=== PATIENT | male | born 1935 | race Caucasian/White ===

== ENCOUNTER → 2017-11-01 16:00 | Outpatient (CLI) | payer MEDICARE, SELFPAY ==
[2017-11-01 17:29] LABS: Absolute Neutrophil Count 5.7 X10^3/uL (2.0-7.7); Basophil# 0.04 X10^3/uL; Basophil% 0.5 % (0-1); Eosinophil# 0.15 X10^3/uL; Eosinophils% 1.9 % (0-5); Hematocrit 38.3 % (40-54); Hemoglobin 12.7 g/dl (13.0-16.5); Lymphocyte % 20.2 % (19-41); Mean Corp Hgb Conc 33.2 g/gl (32-36); Mean Corpuscular Hgb 31.4 pg (27.0-32.0); Mean Corpuscular Volume 94.6 fL (80-94); Mean Platelet Vol. 9.4 fl (6.2-12.0); Monocyte# 0.46 X10^3/uL; Monocyte% 5.8 % (0-10); Neutrophil # 5.67 X10^3/uL (2.7-7.7); Neutrophil % 71.5 % (47-70); Platelet Count 198 K/mm3 (150-450); RBC Distribution Width CV 15.3 % (11.6-14.6); RBC Distribution Width SD 51.9 fl (35.1-43.9); Red Blood Count 4.05 M/mm3 (4.6-6.2); White Blood Count 7.9 K/mm3 (4.4-11.0)
[2017-11-01 17:31] LABS: POSITIVE COUNT NO; POSITIVE DIFFERENTIAL NO; POSITIVE MORPHOLOGY NO
[2017-11-01 18:03] LABS: ALB/GLOB Ratio 1.1 RATIO (0.9-2.4); AST(SGOT) 17 U/L (15-37); Alanine Aminotransfer ALT/SGPT 26 U/L (16-61); Albumin, Serum 3.6 g/dL (3.2-5.0); Alkaline Phosphatase 69 U/L (45-117); Anion Gap 8 (5-15); BUN 30 mg/dL (7-18); BUN/Creat Ratio 28.3 RATIO (10-20); Calcium,Total 9.5 mg/dL (8.5-10.1); Chloride 101 mmol/L (98-107); Creatinine, Serum 1.06 mg/dL (0.70-1.30); EST Glomerular Filtration Rate 71 mL/min (>60); Est Glom Filt Rate - Afr Amer 86 mL/min (>60); Globulin 3.4 g/dL (2.2-4.2); Glucose 172 mg/dL (74-106); Potassium 3.4 mmol/L (3.5-5.1); Sodium Level 139 mmol/L (136-145); Thyroid Stim Hormone (TSH) 1.23 uIU/mL (0.358-3.74)
[2017-11-02 09:39] LABS: Vitamin D,25 Hydroxy 29.1 ng/mL (29.95-100.01)
[2017-11-02 18:49] LABS: Hemoglobin A1c 5.4 % (4.2-6.3)
== END ==
PROVIDERS: Visit Provider Family Medicine Geriatric Medicine
DX: I10 Essential (primary) hypertension (principal); E55.9 Vitamin D deficiency, unspecified; M10.9 Gout, unspecified; R73.9 Hyperglycemia, unspecified
CPT/HCPCS: 36415; 80053; 82306; 83036; 84443; 84550; 85025

== ENCOUNTER → 2017-11-01 16:06 | Outpatient (CLI) | payer MEDICARE, OTHER, SELFPAY ==
--- NOTE | 2017-11-01 16:15 | EKG12_ITS ---
Test Reason : SYNCOPE Blood Pressure : / mmHG Vent. Rate : 069 BPM Atrial Rate : 069 BPM P-R Int : 176 ms QRS Dur : 090 ms QT Int : 392 ms P-R-T Axes : 084 -74 086 degrees QTc Int : 420 ms Normal sinus rhythm Left axis deviation Nonspecific ST and T wave abnormality Abnormal ECG Confirmed by ROSIE HINOJOSA, SUSAN ([id number]), image editor WILLOW ANGELES ([id number]) on 11/02/2017 2:32:14 PM Referred By: Neto Rashid Confirmed By:SUSAN VELEZ MD
== END ==
PROVIDERS: Family Provider Family Medicine Geriatric Medicine; PCP Family Medicine Geriatric Medicine; Visit Provider Family Medicine Geriatric Medicine
DX: R55 Syncope and collapse (principal)
CPT/HCPCS: 93005

== ENCOUNTER → 2017-11-10 08:53 | Outpatient (CLI) | payer MEDICARE, OTHER, SELFPAY ==
[2017-11-10 13:23] LABS: Anion Gap 6 (5-15); BUN 16 mg/dL (7-18); BUN/Creat Ratio 18.2 RATIO (10-20); Calcium,Total 8.8 mg/dL (8.5-10.1); Chloride 105 mmol/L (98-107); Creatinine, Serum 0.88 mg/dL (0.70-1.30); EST Glomerular Filtration Rate 89 mL/min (>60); Est Glom Filt Rate - Afr Amer 107 mL/min (>60); Glucose 99 mg/dL (74-106); Potassium 4.1 mmol/L (3.5-5.1); Sodium Level 141 mmol/L (136-145)
== END ==
PROVIDERS: Family Provider Family Medicine Geriatric Medicine; PCP Family Medicine Geriatric Medicine; Visit Provider Family Medicine Geriatric Medicine
DX: E87.6 Hypokalemia (principal)
CPT/HCPCS: 36415; 80048

== ENCOUNTER → 2018-06-16 12:42 | Outpatient (CLI) | payer MEDICARE, OTHER, SELFPAY ==
--- NOTE | 2018-06-16 12:44 | ECHOD_ITS ---
Reason For Study: HTN Procedure This was a 2D Doppler, Color Flow transthoracic echocardiogram. Exam performed in department. Left Ventricle Normal LV size. Left ventricular systolic function is normal. The estimated ejection fraction is 55 %. Stage 1 diastolic dysfunction. No regional wall motion abnormalities noted. Right Ventricle Normal RV size. Normal systolic function. Atria Normal left atrium. Normal right atrium. Mitral Valve Normal mitral valve. Mild (1+) eccentric mitral valve insufficiency. Tricuspid Valve Normal tricuspid valve. Mild (1+) tricuspid valve insufficiency. Pulmonary artery systolic pressure is 34 mmHg. Aortic Valve Trisinus/trileaflet aortic valve. Mild focal aortic valve calcification. Pulmonic Valve The pulmonic valve is not well visualized. Great Vessels Normal aortic root. The pulmonary artery is normal size. Normal inferior vena cava. Pericardium/Pleural No pericardial effusion. MMode/2D Measurements & Calculations LVIDd: 5.0 cm IVSd: 1.0 cm LVOT diam: 2.0 cm LVIDs: 2.9 cm LVPWd: 1.0 cm LVOT area: 3.1 cm2 FS: 40.8 % Ao root diam: 4.0 cm LAV(MOD-bp): 59.6 ml LVAd ap4: 31.6 cm2 LA dimension: 3.6 cm LAV(MOD-bp) Indexed: 28.9 ml/m2 EDV(MOD-sp4): 97.3 ml LAV(MOD-sp2): 59.4 ml EDV(sp4-el): 97.4 ml LAV(MOD-sp4): 49.2 ml LVAs ap4: 16.5 cm2 ESV(MOD-sp4): 35.5 ml ESV(sp4-el): 35.2 ml EF(MOD-sp4): 63.5 % EF(sp4-el): 63.8 % SV(MOD-sp4): 61.8 ml SV(sp4-el): 62.2 ml LA A4 area: 16.9 cm2 RA A4 area: 15.7 cm2 Time Measurements MV dec time: 0.25 sec Doppler Measurements & Calculations MV E max kevin: 65.2 cm/sec Lat Peak E' Kevin: 4.4 cm/sec Med Peak E' Kevin: 5.2 cm/sec MV A max kevin: 112.7 cm/sec E/E' lat: 14.9 E/E' med: 12.5 MV E/A: 0.58 MV V2 max: 123.3 cm/sec MV P1/2t max kevin: 80.9 cm/sec Ao V2 max: 137.7 cm/sec MV max P.1 mmHg MV P1/2t: 87.4 msec Ao max P.6 mmHg MV V2 mean: 55.3 cm/sec MV dec slope: 271.0 cm/sec2 Ao V2 mean: 90.4 cm/sec MV mean P.5 mmHg MVA(P1/2t): 2.5 cm2 Ao mean P.6 mmHg MV V2 VTI: 38.0 cm Ao V2 VTI: 30.4 cm MVA(VTI): 2.1 cm2 HELLEN(I,D): 2.7 cm2 HELLEN(V,D): 2.8 cm2 LV V1 max: 122.9 cm/sec SV(LVOT): 81.6 ml PA V2 max: 107.9 cm/sec LV V1 max P.0 mmHg LV V1 mean P.7 mmHg LV V1 mean: 75.3 cm/sec LV V1 VTI: 26.4 cm TR max kevin: 267.7 cm/sec TR max P.7 mmHg Interpretation Summary Normal LV size. Left ventricular systolic function is normal. The estimated ejection fraction is 55 %. Stage 1 diastolic dysfunction. Mild (1+) eccentric mitral valve insufficiency. Mild (1+) tricuspid valve insufficiency. Ordering Physician: Jan Savage Referring Physician: Neto Rashid Chi Performed By: Ronnie Camarillo RCS
== END ==
PROVIDERS: Family Provider Family Medicine Geriatric Medicine; PCP Family Medicine Geriatric Medicine; Referring Provider Internal Medicine Cardiovascular Disease; Visit Provider Internal Medicine Cardiovascular Disease
DX: R94.31 Abnormal electrocardiogram [ECG] [EKG] (principal)
CPT/HCPCS: 93306

== ENCOUNTER → 2018-08-02 13:58 | Outpatient (CLI) | payer MEDICARE, OTHER, SELFPAY ==
[2018-06-22 13:49] VITALS: BMI 25.6
[2018-08-02 17:12] LABS: Absolute Lymphocyte Count 1.85 X10^3/ul (0.83-4.51); Absolute Neutrophil Count 4.1 X10^3/uL (2.0-7.7); Basophil# 0.07 X10^3/uL; Hematocrit 41.8 % (40-54); Hemoglobin 13.5 g/dl (13.0-16.5); Lymphocyte # 1.85 X10^3/ul (4.0); Lymphocyte % 27.7 % (19-41); Mean Corp Hgb Conc 32.3 g/gl (32-36); Mean Corpuscular Hgb 30.9 pg (27.0-32.0); Mean Corpuscular Volume 95.7 fL (80-94); Mean Platelet Vol. 9.7 fl (6.2-12.0); Monocyte# 0.45 X10^3/uL; Monocyte% 6.7 % (0-10); Neutrophil # 4.09 X10^3/uL (2.7-7.7); Neutrophil % 61.5 % (47-70); Platelet Count 212 K/mm3 (150-450); RBC Distribution Width CV 14.9 % (11.6-14.6); RBC Distribution Width SD 50.4 fl (35.1-43.9); Red Blood Count 4.37 M/mm3 (4.6-6.2); White Blood Count 6.7 K/mm3 (4.4-11.0)
[2018-08-02 17:34] LABS: POSITIVE COUNT NO; POSITIVE DIFFERENTIAL NO; POSITIVE MORPHOLOGY NO
[2018-08-02 17:48] LABS: BUN 20 mg/dL (7-18); Creatinine, Serum 1.07 mg/dL (0.70-1.30); EST Glomerular Filtration Rate 71 mL/min (>60); Glucose 98 mg/dL (74-106)
[2018-08-02 17:49] LABS: ALB/GLOB Ratio 1.2 RATIO (0.9-2.4); AST(SGOT) 28 U/L (15-37); Alanine Aminotransfer ALT/SGPT 38 U/L (16-61); Albumin, Serum 3.7 g/dL (3.2-5.0); Alkaline Phosphatase 69 U/L (45-117); Anion Gap 9 (5-15); BUN/Creat Ratio 18.7 RATIO (10-20); Calcium,Total 8.8 mg/dL (8.5-10.1); Chloride 99 mmol/L (98-107); Est Glom Filt Rate - Afr Amer 85 mL/min (>60); Globulin 3.2 g/dL (2.2-4.2); Potassium 3.7 mmol/L (3.5-5.1); Protein, Total 6.9 g/dL (6.4-8.2); Sodium Level 141 mmol/L (136-145); Thyroid Stim Hormone (TSH) 1.61 uIU/mL (0.358-3.74); Uric Acid 5.4 mg/dL (3.5-7.2)
[2018-08-02 17:54] LABS: Vitamin D,25 Hydroxy 25.1 ng/mL (29.95-100.01)
--- OUTSIDE RECORDS SUMMARY | 2018-09-27 23:44 | XMS RPT_ITS ---
:1935 Author Organization [place] Support Name Relationship Address Phone DARY GRAFF Unavailable [address] + [place] [address] R Unavailable Unavailable Unavailable DARY GRAFF Unavailable [address] + [place] [address] R Unavailable Unavailable Unavailable DARY GRAFF Unavailable [address] + [place] [address] R Unavailable Unavailable Unavailable DARY GRAFF Unavailable [address] + [place] [address] R Unavailable Unavailable Unavailable DARY GRAFF Unavailable [address] + [place] [address] THELMA SHEPARD Unavailable [address] + [place] [address] R Unavailable Unavailable Unavailable DARY GRAFF Unavailable [address] + [place] [address] THELMA SHEPARD Unavailable [address] + [place], [place] R Unavailable Unavailable Unavailable DARY GRAFF Unavailable [address] + [place] [address] THELMA SHEPARD Unavailable [address] + [place], [place] R Unavailable Unavailable Unavailable DARY GRAFF Unavailable [address] + [place] [address] THELMA SHEPARD Unavailable [address] + [place], [place] R Unavailable Unavailable Unavailable DARY GRAFF Unavailable [address] + [place] [address] THELMA SHEPARD Unavailable [address] + [place], [place] R Unavailable Unavailable Unavailable DARY GRAFF Unavailable [address] + [place] [address] THELMA SHEPARD Unavailable [address] + [place], [place] R Unavailable Unavailable Unavailable DARY GRAFF Unavailable [address] + [place] [address] THELMA SHEPARD Unavailable [address] + [place], [place] R Unavailable Unavailable Unavailable R Unavailable Unavailable Unavailable Care Team Providers Name Role Phone Rachid, Neto Chi Attending Unavailable Rachid, Neto Chi Referring Unavailable Rachid, Neto Chi Primary Care Unavailable Rachid, Neto Chi Attending Unavailable Rachid, Neto Chi Attending Unavailable Rachid, Neto Chi Primary Care Unavailable Rachid, Neto Chi Attending Unavailable Hussein, [place] Attending Unavailable Rachid, Neto Chi Referring Unavailable Kilner, Leticia Attending Unavailable Kilner, Leticia Attending Unavailable Hussein, [place] Attending Unavailable Rachid, Neto Chi Referring Unavailable Hussein, Jan Attending Unavailable Hussein, [place] Referring Unavailable Rachid, Neto Chi Primary Care Unavailable Hussein, Jan Attending Unavailable Hussein, Jan Referring Unavailable Rachid, Neto Chi Primary Care Unavailable Hussein, [place] Consulting Unavailable Hussein, [place] Attending Unavailable Rachid, Neto Chi Referring Unavailable Rachid, Neto Chi Attending Unavailable Rachid, Neto Chi Primary Care Unavailable PROBLEMS PROBLEMS DATE TYPE CONDITION / CODE ATTENDING STATUS SOURCE 06/22/2018 Unknown I10 - Essential Hussein, [place] Active [place] (primary) hypertension Community / I10(ICD-10) Hospital Repository 06/16/2018 Unknown R94.31 - Abnormal Hussein, Jan Active [place] electrocardiogram Community [ECG] [EKG] / Hospital R94.31(ICD-10) Repository 05/31/2018 Unknown E78.5 - Hussein, [place] Active [place] Hyperlipidemia, Community unspecified / Hospital E78.5(ICD-10) Repository 12/09/2017 Unknown R55 - Syncope and Hussein, Jan Active [place] collapse / R55(ICD-10) [facility] Hospital Repository PROCEDURES PROCEDURES No Procedure Records FoundRESULTS RESULTS CBC W/DIFF, AUTOMATED Collected: 08/02/2018 Status: F Source: [place] 2:01 PM [facility] HOSPITAL REPOSITORY TYPE CODE TESTS RESULT OUT OF RANGE REFERENCE UNITS LAB L100.1000 4.4-11.0 K/mm3 Normal WBC 6.7 LAB L100.1200 4.6-6.2 M/mm3 Low RBC 4.37 LAB L100.1300 13.0-16.5 g/dl Normal HGB 13.5 LAB L100.1400 40-54 % Normal HCT 41.8 LAB L100.1500 80-94 fL High MCV 95.7 LAB L100.1600 27.0-32.0 pg Normal MCH 30.9 LAB L100.1700 32-36 g/gl Normal MCHC 32.3 LAB L100.1810 11.6-14.6 % High RDW CV 14.9 LAB L100.1820 35.1-43.9 fl High RDW SD 50.4 LAB L100.1900 150-450 K/mm3 Normal PLT 212 LAB L100.2000 6.2-12.0 fl Normal MPV 9.7 LAB L100.2100 47-70 % Normal NEUT% 61.5 LAB L100.2200 19-41 % Normal LY% 27.7 LAB L100.2300 0-10 % Normal MONO% 6.7 LAB L100.2400 0-5 % Normal EO% 3.0 LAB L100.2500 0-1 % Normal BASO% 1.0 LAB L100.2550 0.0-0.9 % Normal IM GRAN % 0.100 Result Comment: IG% - Immature Granulocytes (promyelocytes, myelocytes and metamyelocytes) > 1% indicates that a LEFT SHIFT is Present. LAB L100.2620 2.0-7.7 X10 3/uL Normal Absolute Neut 4.1 LAB L100.2720 0.83-4.51 X10 3/ul Normal Absolute Lymph 1.85 Performed By: #### L100.0100 #### [facility] [address] [facility] [address] [place], [place], [id number] COMPREHENSIVE METABOLIC Collected: 08/02/2018 Status: F Source: [facility] 2:01 PM [facility] [place] TYPE CODE TESTS RESULT OUT OF RANGE REFERENCE UNITS LAB L501.0100 74-106 mg/dL Normal GLU 98 Result Comment: Please note revised GLUCOSE reference range effective 2017. LAB L501.1000 7-18 mg/dL High BUN 20 LAB L501.1100 0.70-1.30 mg/dL Normal CREAT,SERUM 1.07 Result Comment: The validity of the calculated GFR AND GFRAA in patients over 70 years has not been determined. Clinical correlation is essential. LAB L501.1110 >60 mL/min Normal EST GFR 71 Result Comment: Non- GFR Calc LAB L501.1115 >60 mL/min Normal EST GFR - AA 85 Result Comment: GFR Calc LAB L501.1300 10-20 RATIO Normal BUN/CRE 18.7 LAB L501.1500 6.4-8.2 g/dL T Normal PROT 6.9 LAB L501.1800 3.2-5.0 g/dL Normal ALB 3.7 LAB L501.1950 2.2-4.2 g/dL Normal GLOB 3.2 LAB L501.2000 0.9-2.4 RATIO Normal A/G 1.2 LAB L501.2200 8.5-10.1 mg/dL CA Normal 8.8 LAB L501.4100 15-37 U/L Normal AST 28 LAB L501.4305 45-117 U/L Normal ALK P 69 LAB L501.4405 16-61 U/L Normal ALT 38 LAB L501.4600 0.20-1.00 mg/dL T Normal BILI 0.70 LAB L501.5300 136-145 mmol/L NA Normal 141 LAB L501.5600 3.5-5.1 mmol/L K Normal 3.7 LAB L501.5900 98-107 mmol/L CL Normal 99 LAB L501.6100 21.0-32.0 mmol/L High CO2 33.0 LAB L501.6200 5-15 Normal GAP 9 Performed By: #### L500.4050, L501.1400, L501.9520 #### [facility] [address] [place], [address] URIC ACID Collected: 08/02/2018 Status: F Source: [place] 2:01 PM [facility] [place] TYPE CODE TESTS RESULT OUT OF RANGE REFERENCE UNITS LAB L501.1400 3.5-7.2 mg/dL Normal URIC 5.4 Result Comment: The drugs N-Acetylcysteine and Metamizole may falsely depress this assay. Performed By: #### L500.4050, L501.1400, L501.9520 #### [facility] [address] [place], [address] THYROID STIM HORMONE Collected: 08/02/2018 Status: F Source: [place] (TSH) 2:01 PM [facility] [place] TYPE CODE TESTS RESULT OUT OF RANGE REFERENCE UNITS LAB L501.9520 0.358-3.74 uIU/mL Normal TSH 1.61 Performed By: #### L500.4050, L501.1400, L501.9520 #### [facility] [address] [place], [address] VITAMIN D,25 HYDROXY Collected: 08/02/2018 Status: F Source: [place] 2:01 PM [facility] [place] TYPE CODE TESTS RESULT OUT OF REFERENCE UNITS RANGE LAB L506.1000 29.95-100.01 ng/mL Low Vitamin D 25.1 25-OH Result Comment: Vitamin D 25(OH) Status Range Deficiency <20 ng/mL (50nmol/L) Insuffciency 20 - 30 ng/mL (50 - 75 nmol/L) Sufficiency 30 - 100 ng/mL (75 - 250 nmol/L) Toxicity >100 ng/mL (>250 nmol/L) Performed By: #### L506.1000 #### [facility] [address] [place], [address] CARDIOLOGY VISIT Observed: 06/22/2018 Status: F Source: [place] REPORT 2:20 PM [facility] [place] [facility] [place] [address] OFFICE VISIT Date of Service: 06/22/18 MR#: [id number] Acct: [id number] Name: LILLIANA JOSEPH Rep #: [id number] : 1935 Provider: Jan Savage MD Age/Sex: 83/M Location: [facility] [place] Status: Signed HPI HPI Chief Complaint: Follow up Details: LILLIANA JOSEPH, is a 83 M who presents to the office today for a follow-up visit as well as his blood pressure check. As you know his been having some labile blood pressures at home we made some alterations to his blood pressure medications but with his records he tells me that his blood pressures have still been keeping up. His last echocardiogram that was done demonstrated an ejection fraction approximately 55%. His physical exam today demonstrates clear lung duran regular rate and rhythm and no pedal edema. 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 [employer] Required: No Is patient in pain?: No Allergies No Known Allergies Allergy (Verified 06/22/18 13:50) Medications allopurinol 300 mg tablet 300 mg PO DAILY 05/31/18 [History Confirmed 06/22/18] aspirin 81 mg tablet,delayed release 81 mg PO DAILY 05/31/18 [History Confirmed 06/22/18] doxazosin 8 mg tablet 8 mg PO DAILY 05/31/18 [History Confirmed 06/22/18] finasteride 5 mg tablet 5 mg PO DAILY 05/31/18 [History Confirmed 06/22/18] lisinopril 20 mg-hydrochlorothiazide 25 mg tablet 1 tab PO DAILY tab 05/31/18 [History Confirmed 06/22/18] metoprolol tartrate 25 mg tablet 25 mg PO BID 05/31/18 [History Confirmed 06/22/18] multivitamin tablet 1 tab PO DAILY 05/31/18 [History Confirmed 06/22/18] omega-3 fatty acids-fish oil 300 mg-1,000 mg capsule 2 cap PO DAILY cap 05/31/18 [History Confirmed 06/22/18] vit C 250 mg-E 200 unit-zinc 40 mg-copper 1 [id number]-isuqga-gpgroi capsule 1 tab PO BID 05/31/18 [History Confirmed 06/22/18] amlodipine 5 mg tablet 5 mg PO DAILY #90 tab 06/22/18 [Rx Confirmed 06/22/18] PFS Medical History Hyperlipidemia (Chronic) Hypertension (Chronic) Anxiety (Chronic) BPH (benign prostatic hyperplasia) (Chronic) Gout (Chronic) Surgical History H/O right inguinal hernia repair (Resolved) History of cataract surgery (Resolved) Family History Mother Myocardial infarction Age 82 Social History Smoking Status: Never smoker alcohol intake: never ROS Const Const: Negative for fatigue, weakness, night sweats, excessive sweating, frequent falls, headache(s) or daytime sleepiness Eyes Eyes: Negative for loss of peripheral vision, transient loss of vision, blind spots, double vision or blurry vision ENT ENT: Negative for headache(s), dizziness, balance problems, Nosebleed/epistaxis, tongue swelling or lip swelling Cardio Chest Pain: No Palpitations: No Edema: None Muscle aches with walking: None Resp Respiratory: Negative for SOB at rest, SOB orthopnea\SOB lying down, Cough, paroxysmal nocturnal dyspnea or SOB with activity GI GI: Negative nausea, vomiting, heartburn, black,tarry stools or bright, red blood in stools : Negative for hematuria Musc Musc: Negative for balance problems, muscle aches/ myalgia, muscle weakness or joint pain Skin Skin: Negative non-healing lesions, unusual bruising or rash Neuro Neuro: Negative for weakness, frequent falls, headache(s), double vision, dizziness, lightheadedness, orthostatic symptoms, blurry vision or lack of coordination Hector Hematologic/Lymphatic: Negative for easy bruising or easy bleeding Endo Endo: Negative for fatigue, excessive sweating, cold intolerance, heat intolerance, increased thirst/drinking or hair loss Psych Psych: Negative for anxiety or depression Allergy Allergy/Immunology: Negative for throat swelling, Negative for tongue swelling, Negative for hives, Negative for rash, Negative for lip swelling Cardiology Exam Const Appearance: cooperative, healthy appearing, well developed, well groomed and no acute distress Nutritional Appearance: well nourished and average body habitus Orientation: alert, awake and oriented x3 Head Head: normal to inspection, normocephalic and atraumatic Ears: hearing grossly normal bilaterally and external ears normal Nose: external nose normal, nasal mucous membranes and turbinates normal, nares normal, septum normal, no nasal discharge Face and Sinus: face symmetric Mouth: oral mucosae normal, tongue normal, oropharynx normal and moist mucous membranes Teeth and gingiva: dentition normal Throat: posterior oropharynx normal, tonsils normal and uvula midline Eyes General: appearance normal, both eyes and all related structures Eyelids: eyelids normal Conjunctivae: conjunctivae normal Pupils: PERRL, normal by confrontation and accommodation normal EOM: EOM intact bilaterally Neck Neck: normal visual inspection, trachea midline and no JVD JVD: +5 Carotids: normal carotid upstroke and bounding pulses Chest Chest inspection: normal inspection of the chest, symmetric chest movement and normal respiratory effort Auscultation: Bilateral: Clear to Auscultation Cardio Palpation: normal PMI Rate: regular rate Rhythm: regular rhythm Heart sounds: S1 normal, S2 normal and normal, physiologic split S2; negative rub, gallop or murmur GI GI: normal to inspection, soft, no hepatosplenomegaly and bowel sounds present Neuro General: alert, awake, oriented x3, no focal sensory deficit, gait normal and moves all extremities Skin Skin: no rashes or lesions noted Extremities Pulses: Normal: Right Femoral Pulse, Left Femoral Pulse, Right Dorsalis Pedis Pulse, Left Dorsalis Pedis Pulse, Right Posterior Tibial Pulse, Left Posterior Tibial Pulse, Right Radial Pulse, Left Radial Pulse Lower Extremity Edema: None: Bilateral Musculoskel Musculoskeletal: No joint tenderness Psych Psychological: normal affect Assessment AND Plan 1. Hypertension I10 Plan His blood pressure here as well as on his records appear to be elevated I would recommend that he continue his current medications and also add Norvasc 5 mg a day to his regimen. He has had an echocardiogram which is demonstrated preserved ejection fraction and no other changes will be made. I like him to be seen by our physician assistant surveyor in 3-4 months. He should continue to keep records of his blood pressures at home. Thank you for allowing me to participate in the care of your patient. Please don't hesitate to call if any issues arise Plan Detail Other Medications New: Follow Up 3 Months (mmm) Coding Level of Care Code Off vis,est,level 2 Diagnoses Hypertension I10 Coding Level of Care Code Off vis,est,level 2 Diagnoses Hypertension I10 06/22/18 1420 <Electronically signed by Jan Savage MD> Date Jan Savage MD Cosigner Signature: Date (if applicable) CC: Neto Rashid MD ECHOCARDIOGRAM COMPLETE Observed: 06/16/2018 Status: F Source: [place] 10:11 PM [facility] [place] [facility] Cardiovascular Services [address] [place] [address] Echo Complete 06/16/18 1246 MR#: [id number] Acct: [id number] Name: LILLIANA JOSEPH Rep #: [id number] : 1935 83 From: Jan Savage MD Attending Dr: Jan Savage MD Status: REG CLI Ordering Dr: Jan Savage MD Date: 06/16/18 Location: [facility] Sex: M C Admitted: Reason For Study: HTN Procedure This was a 2D Doppler, Color Flow transthoracic echocardiogram. Exam performed in department. Left Ventricle Normal LV size. Left ventricular systolic function is normal. The estimated ejection fraction is 55 %. Stage 1 diastolic dysfunction. No regional wall motion abnormalities noted. Right Ventricle Normal RV size. Normal systolic function. Atria Normal left atrium. Normal right atrium. Mitral Valve Normal mitral valve. Mild (1+) eccentric mitral valve insufficiency. Tricuspid Valve Normal tricuspid valve. Mild (1+) tricuspid valve insufficiency. Pulmonary artery systolic pressure is 34 mmHg. Aortic Valve Trisinus/trileaflet aortic valve. Mild focal aortic valve calcification. Pulmonic Valve The pulmonic valve is not well visualized. Great Vessels Normal aortic root. The pulmonary artery is normal size. Normal inferior vena cava. Pericardium/Pleural No pericardial effusion. MMode/2D Measurements AND Calculations LVIDd: 5.0 cm IVSd: 1.0 cm LVOT diam: 2.0 cm LVIDs: 2.9 cm LVPWd: 1.0 cm LVOT area: 3.1 cm2 FS: 40.8 % Ao root diam: 4.0 cm LAV(MOD-bp): 59.6 ml LVAd ap4: 31.6 cm2 LA dimension: 3.6 cm LAV(MOD-bp) Indexed: 28.9 ml/m2 EDV(MOD-sp4): 97.3 ml LAV(MOD-sp2): 59.4 ml EDV(sp4-el): 97.4 ml LAV(MOD-sp4): 49.2 ml LVAs ap4: 16.5 cm2 ESV(MOD-sp4): 35.5 ml ESV(sp4-el): 35.2 ml EF(MOD-sp4): 63.5 % EF(sp4-el): 63.8 % SV(MOD-sp4): 61.8 ml SV(sp4-el): 62.2 ml LA A4 area: 16.9 cm2 RA A4 area: 15.7 cm2 Time Measurements MV dec time: 0.25 sec Doppler Measurements AND Calculations MV E max kevin: 65.2 cm/sec Lat Peak E' Kevin: 4.4 cm/sec Med Peak E' Kevin: 5.2 cm/sec MV A max kevin: 112.7 cm/sec E/E' lat: 14.9 E/E' med: 12.5 MV E/A: 0.58 MV V2 max: 123.3 cm/sec MV P1/2t max kevin: 80.9 cm/sec Ao V2 max: 137.7 cm/sec MV max P.1 mmHg MV P1/2t: 87.4 msec Ao max P.6 mmHg MV V2 mean: 55.3 cm/sec MV dec slope: 271.0 cm/sec2 Ao V2 mean: 90.4 cm/sec MV mean P.5 mmHg MVA(P1/2t): 2.5 cm2 Ao mean P.6 mmHg MV V2 VTI: 38.0 cm Ao V2 VTI: 30.4 cm MVA(VTI): 2.1 cm2 HELLEN(I,D): 2.7 cm2 HELLEN(V,D): 2.8 cm2 LV V1 max: 122.9 cm/sec SV(LVOT): 81.6 ml PA V2 max: 107.9 cm/sec LV V1 max P.0 mmHg LV V1 mean P.7 mmHg LV V1 mean: 75.3 cm/sec LV V1 VTI: 26.4 cm TR max kevin: 267.7 cm/sec TR max P.7 mmHg Interpretation Summary Normal LV size. Left ventricular systolic function is normal. The estimated ejection fraction is 55 %. Stage 1 diastolic dysfunction. Mild (1+) eccentric mitral valve insufficiency. Mild (1+) tricuspid valve insufficiency. Ordering Physician: Jan Savage Referring Physician: Neto Rashid Chi Performed By: Ronnie Camarillo RCS 06/16/182209 Date Jan Savage MD CC: Jan Savage MD; Neto Rashid MD Date Dictated: 06/16/18 1246 Date Transcribed: 06/16/182209 Functional Architect: Signed CARDIOLOGY VISIT Observed: 05/31/2018 Status: F Source: [place] RE[place] 11:02 AM [facility] [place] [facility] [address] [place] [address] OFFICE VISIT Date of Service: 05/31/18 MR#: [id number] Acct: [id number] Name: LILLIANA JOSEPH Rep #: [id number] : 1935 Provider: Jan Savage MD Age/Sex: 83/M Location: [facility] [place] Status: Signed HPI HPI Chief Complaint: Initial visit Details: LILLIANA JOSEPH, is a 83 M who presents to the office today for initial evaluation. He is a gentleman with a history of hypertension and a previous history of hyperlipidemia. He says that he has been having labile blood pressure checks at home and there have been some changes made to his blood pressures but they have not been satisfactory. He has not had any dizziness or diaphoresis no near syncope or syncope he had previously been under some amount of stress due to his 's illness. He denies any chest pain or paroxysmal nocturnal dyspnea or pedal edema he did have an episode in October where he had a near syncopal spell he had an EKG performed with demonstrated normal sinus rhythm with a rate of 69 bpm and no acute changes. His physical exam today demonstrates clear lung duran regular rate and rhythm and no pedal edema his blood pressure is under good control. Intake Vital Signs05/31/18 Blood Pressure 124/60 H 05/31/18 Blood Pressure Location Rt brachial 05/31/18 Height 6 ft 05/31/18 Weight: 189 lb Intake Visit Reasons: Self refd for HTN hx, not going back to Dr Rashid Allergies No Known Allergies Allergy (Unverified 05/31/18 10:27) Medications allopurinol 300 mg tablet 300 mg PO DAILY 05/31/18 [History Confirmed 05/31/18] aspirin 81 mg tablet,delayed release 81 mg PO DAILY 05/31/18 [History Confirmed 05/31/18] doxazosin 8 mg tablet 8 mg PO DAILY 05/31/18 [History Confirmed 05/31/18] finasteride 5 mg tablet 5 mg PO DAILY 05/31/18 [History Confirmed 05/31/18] lisinopril 20 mg-hydrochlorothiazide 25 mg tablet 1 tab PO DAILY tab 05/31/18 [History Confirmed 05/31/18] metoprolol tartrate 25 mg tablet 25 mg PO BID 05/31/18 [History Confirmed 05/31/18] multivitamin tablet 1 tab PO DAILY 05/31/18 [History Confirmed 05/31/18] omega-3 fatty acids-fish oil 300 mg-1,000 mg capsule 2 cap PO DAILY cap 05/31/18 [History Confirmed 05/31/18] vit C 250 mg-E 200 unit-zinc 40 mg-copper 1 do-yzwuvz-aelddg capsule 1 tab PO BID 05/31/18 [History Confirmed 05/31/18] PFS Medical History Hyperlipidemia (Chronic) Hypertension (Chronic) Anxiety (Chronic) BPH (benign prostatic hyperplasia) (Chronic) Gout (Chronic) Surgical History H/O right inguinal hernia repair (Resolved) History of cataract surgery (Resolved) Family History Mother Myocardial infarction Age 82 Social History Smoking Status: Never smoker alcohol intake: never ROS Const Const: Positive for fatigue (Notes fatigue after taking morning meds and his BP is low); negative for weakness, difficulty sleeping, frequent falls, excessive sweating or headache(s) Eyes Eyes: Negative for loss of peripheral vision, transient loss of vision, blurry vision, tunnel vision or double vision ENT ENT: Negative for headache(s), dizziness, Nosebleed/epistaxis or balance problems Cardio Chest Pain: No Palpitations: No Edema: None Muscle aches with walking: None Resp Respiratory: Negative for SOB with activity, SOB at rest, SOB orthopnea\SOB lying down, paroxysmal nocturnal dyspnea or Cough GI GI: Negative nausea, heartburn, black,tarry stools or vomiting : Negative for hematuria Musc Musc: Negative for balance problems, muscle aches/ myalgia, muscle weakness or joint pain Skin Skin: Negative non-healing lesions, unusual bruising or rash Neuro Neuro: Positive for syncope (Had a syncopal episode after using the bathroom at [facility] in October); negative for weakness, frequent falls, headache(s), blurry vision, double vision, dizziness, lightheadedness, orthostatic symptoms, near syncope or lack of coordination Hector Hematologic/Lymphatic: Negative for easy bruising or easy bleeding Endo Endo: Positive for fatigue (Notes fatigue after taking morning meds and his BP is low); negative for excessive sweating or increased thirst/drinking Psych Psych: Negative for anxiety or depression Allergy Allergy/Immunology: Negative for hives, Negative for rash Cardiology Exam Const Appearance: cooperative, healthy appearing, well developed, well groomed and no acute distress Nutritional Appearance: well nourished and average body habitus Orientation: alert, awake and oriented x3 Head Head: normal to inspection, normocephalic and atraumatic Ears: hearing grossly normal bilaterally and external ears normal Nose: external nose normal, nasal mucous membranes and turbinates normal, nares normal, septum normal, no nasal discharge Face and Sinus: face symmetric Mouth: oral mucosae normal, tongue normal, oropharynx normal and moist mucous membranes Teeth and gingiva: dentition normal Throat: posterior oropharynx normal, tonsils normal and uvula midline Eyes General: appearance normal, both eyes and all related structures Eyelids: eyelids normal Conjunctivae: conjunctivae normal Pupils: PERRL, normal by confrontation and accommodation normal EOM: EOM intact bilaterally Neck Neck: normal visual inspection, trachea midline and no JVD JVD: +5 Carotids: normal carotid upstroke and bounding pulses Chest Chest inspection: normal inspection of the chest, symmetric chest movement and normal respiratory effort Auscultation: Bilateral: Clear to Auscultation Cardio Palpation: normal PMI Rate: regular rate Rhythm: regular rhythm Heart sounds: S1 normal, S2 normal and normal, physiologic split S2; negative rub, gallop or murmur GI GI: normal to inspection, soft, no hepatosplenomegaly and bowel sounds present Neuro General: alert, awake, oriented x3, no focal sensory deficit, gait normal and moves all extremities Skin Skin: no rashes or lesions noted Extremities Pulses: Normal: Right Femoral Pulse, Left Femoral Pulse, Right Dorsalis Pedis Pulse, Left Dorsalis Pedis Pulse, Right Posterior Tibial Pulse, Left Posterior Tibial Pulse, Right Radial Pulse, Left Radial Pulse Lower Extremity Edema: None: Bilateral Musculoskel Musculoskeletal: No joint tenderness Psych Psychological: normal affect Assessment AND Plan 1. Hypertension I10 Plan His blood pressure here in the office appears to be under good control I would recommend that we reduce his lisinopril HCT to 1 tablet a day in the morning and for him to continue his metoprolol at 25 mg twice daily. He is also on the doxazosin which as you know can cause postural hypotension. I have cautioned him about this. I like to see him again within a month after an echocardiogram has been performed and depending on the findings further recommendations will be made. He should keep records of his blood pressures, daily as well as procure a new blood pressure cuff. 2. Hyperlipidemia E78.5 Plan Does have a history of hyperlipidemia. He is currently off any statin and at this time I would not recommend placing him on 1. Thank you for allowing me to participate in his care. 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) Coding Level of Care Code Off vis,new,level 4 Diagnoses Hypertension I10 Hyperlipidemia E78.5 Coding Level of Care Code Off vis,new,level 4 Diagnoses Hypertension I10 Hyperlipidemia E78.5 05/31/18 1102 <Electronically signed by Jan Savage MD> Date Jan Savage MD Cosigner Signature: Date (if applicable) CC: Neto Rashid MD BASIC METABOLIC Collected: 11/10/2017 Status: F Source: [place] PROFILE (BMP) 12:09 PM [facility] [place] CODE TESTS RESULT OUT OF RANGE REFERENCE UNITS LAB L501.0100 74-106 mg/dL Normal GLU 99 Result Comment: Please note revised GLUCOSE reference range effective 2017. LAB L501.1000 7-18 mg/dL Normal BUN 16 LAB L501.1100 0.70-1.30 mg/dL Normal CREAT,SERUM 0.88 Result Comment: The validity of the calculated GFR AND GFRAA in patients over 70 years has not been determined. Clinical correlation is essential. LAB L501.1110 >60 mL/min Normal EST GFR 89 Result Comment: Non- GFR Calc LAB L501.1115 >60 mL/min Normal EST GFR - AA 107 Result Comment: GFR Calc LAB L501.1300 10-20 RATIO Normal BUN/CRE 18.2 LAB L501.2200 8.5-10.1 mg/dL CA Normal 8.8 LAB L501.5300 136-145 mmol/L NA Normal 141 LAB L501.5600 3.5-5.1 mmol/L K Normal 4.1 LAB L501.5900 98-107 mmol/L CL Normal 105 LAB L501.6100 21.0-32.0 mmol/L Normal CO2 30.0 LAB L501.6200 5-15 Normal GAP 6 Performed By: #### L500.2500 #### [facility] [address] [place], [place], [address] HEMOGLOBIN A1C Collected: 11/02/2017 Status: F Source: [place] 4:28 PM [facility] [place] TYPE CODE TESTS RESULT OUT OF RANGE REFERENCE UNITS LAB L501.9985 4.2-6.3 % Normal HGB A1C 5.4 Performed By: #### L501.9985 #### [facility] [address] [place], [address] 12 LEAD ELECTROCARDIOGRAM Observed: 11/02/2017 Status: F Source: [place] 2:32 PM [facility] [place] [facility] Cardiovascular Services [address] [place] [address] 12 Lead EKG 11/01/17 1620 MR#: [id number] Acct: [id number] Name: LILLIANA JOSEPH Rep #: [id number] : 1935 82 From: Jan Savage MD Attending Dr: Rachid HINOJOSA,Neto Wayne Status: REG CLI Ordering Dr: Neto Rashid MD Date: 11/01/17 Location: [facility] Sex: M C Admitted: Test Reason : SYNCOPE Blood Pressure : / mmHG Vent. Rate : 069 BPM Atrial Rate : 069 BPM P-R Int : 176 ms QRS Dur : 090 ms QT Int : 392 ms P-R-T Axes : 084 -74 086 degrees QTc Int : 420 ms Normal sinus rhythm Left axis deviation Nonspecific ST and T wave abnormality Abnormal ECG Confirmed by HUSSEIN HINOJOSA, JAN ([id number]), design editor WILLOW ANGELES ([id number]) on 11/02/2017 2:32:14 PM Referred By: Neto Rashid Confirmed By:JAN SAVAGE MD 11/02/17 1432 Date Jan Savage MD CC: Neto Rashid MD Signed CBC W/DIFF, AUTOMATED Collected: 11/01/2017 Status: F Source: [place] 4:28 PM [facility] [place] TYPE CODE TESTS RESULT OUT OF RANGE REFERENCE UNITS LAB L100.1000 4.4-11.0 K/mm3 Normal WBC 7.9 LAB L100.1200 4.6-6.2 M/mm3 Low RBC 4.05 LAB L100.1300 13.0-16.5 g/dl Low HGB 12.7 LAB L100.1400 40-54 % Low HCT 38.3 LAB L100.1500 80-94 fL High MCV 94.6 LAB L100.1600 27.0-32.0 pg Normal MCH 31.4 LAB L100.1700 32-36 g/gl Normal MCHC 33.2 LAB L100.1810 11.6-14.6 % High RDW CV 15.3 LAB L100.1820 35.1-43.9 fl High RDW SD 51.9 LAB L100.1900 150-450 K/mm3 Normal PLT 198 LAB L100.2000 6.2-12.0 fl Normal MPV 9.4 LAB L100.2100 47-70 % High NEUT% 71.5 LAB L100.2200 19-41 % Normal LY% 20.2 LAB L100.2300 0-10 % Normal MONO% 5.8 LAB L100.2400 0-5 % Normal EO% 1.9 LAB L100.2500 0-1 % Normal BASO% 0.5 LAB L100.2550 0.0-0.9 % Normal IM GRAN % 0.100 Result Comment: IG% - Immature Granulocytes (promyelocytes, myelocytes and metamyelocytes) > 1% indicates that a LEFT SHIFT is Present. LAB L100.2620 2.0-7.7 X10 3/uL Normal Absolute Neut 5.7 LAB L100.2720 0.83-4.51 X10 3/ul Normal Absolute Lymph 1.60 Performed By: #### L100.0100 #### [facility] [address] [place], [address] COMPREHENSIVE METABOLIC Collected: 11/01/2017 Status: F Source: [facility] 4:28 PM [facility] [place] TYPE CODE TESTS RESULT OUT OF RANGE REFERENCE UNITS LAB L501.0100 74-106 mg/dL High GLU 172 Result Comment: Fasting Glucose result greater than or equal to 126 mg/dL suggests DIABETES MELLITUS per A.D.A. criteria. Please note revised GLUCOSE reference range effective 2017. LAB L501.1000 7-18 mg/dL High BUN 30 LAB L501.1100 0.70-1.30 mg/dL Normal CREAT,SERUM 1.06 Result Comment: The validity of the calculated GFR AND GFRAA in patients over 70 years has not been determined. Clinical correlation is essential. LAB L501.1110 >60 mL/min Normal EST GFR 71 Result Comment: Non- GFR Calc LAB L501.1115 >60 mL/min Normal EST GFR - AA 86 Result Comment: GFR Calc LAB L501.1300 10-20 RATIO High BUN/CRE 28.3 LAB L501.1500 6.4-8.2 g/dL T Normal PROT 7.0 LAB L501.1800 3.2-5.0 g/dL Normal ALB 3.6 LAB L501.1950 2.2-4.2 g/dL Normal GLOB 3.4 LAB L501.2000 0.9-2.4 RATIO Normal A/G 1.1 LAB L501.2200 8.5-10.1 mg/dL CA Normal 9.5 LAB L501.4100 15-37 U/L Normal AST 17 LAB L501.4305 45-117 U/L Normal ALK P 69 LAB L501.4405 16-61 U/L Normal ALT 26 Result Comment: Please note revised ALT reference range effective 2017. LAB L501.4600 0.20-1.00 mg/dL Normal T BILI 0.70 LAB L501.5300 136-145 mmol/L Normal NA 139 LAB L501.5600 3.5-5.1 mmol/L Low K 3.4 LAB L501.5900 98-107 mmol/L Normal CL 101 LAB L501.6100 21.0-32.0 mmol/L Normal CO2 30.0 LAB L501.6200 5-15 Normal GAP 8 Performed By: #### L500.4050, L501.1400, L501.9520 #### [facility] [address] [place], [place], [address] URIC ACID Collected: 11/01/2017 Status: F Source: [place] 4:28 PM [facility] [place] TYPE CODE TESTS RESULT OUT OF RANGE REFERENCE UNITS LAB L501.1400 3.5-7.2 mg/dL Normal URIC 5.0 Result Comment: The drugs N-Acetylcysteine and Metamizole may falsely depress this assay. Performed By: #### L500.4050, L501.1400, L501.9520 #### [facility] [address] [place], [place], [address] THYROID STIM HORMONE Collected: 11/01/2017 Status: F Source: [place] (TSH) 4:28 PM [facility] [place] TYPE CODE TESTS RESULT OUT OF RANGE REFERENCE UNITS LAB L501.9520 0.358-3.74 uIU/mL Normal TSH 1.23 Performed By: #### L500.4050, L501.1400, L501.9520 #### [facility] [address] [place], [address] VITAMIN D,25 HYDROXY Collected: 11/01/2017 Status: F Source: [place] 4:28 PM [facility] [place] TYPE CODE TESTS RESULT OUT OF REFERENCE UNITS RANGE LAB L506.1000 29.95-100.01 ng/mL Low Vitamin D 29.1 25-OH Result Comment: Vitamin D 25(OH) Status Range Deficiency <20 ng/mL (50nmol/L) Insuffciency 20 - 30 ng/mL (50 - 75 nmol/L) Sufficiency 30 - 100 ng/mL (75 - 250 nmol/L) Toxicity >100 ng/mL (>250 nmol/L) Performed By: #### L506.1000 #### [facility] [address] [place], [address] ALLERGIES ALLERGIES DATE TYPE / CODE NAME / CODE REACTION SEVERITY SOURCE 06/22/2018 Drug No Known Unknown [facility] Allergy/4160 Allergies/F00 [facility] 64859(SNOMED 2603758(RXNOR Repository CT) M) ENCOUNTERS ENCOUNTERS ADMIT/DISCHARGE ACCOUNT ADMITTING ENCOUNTER LOCATION SOURCE NUMBER CLASS 08/02/2018 [id number] Ambulatory [place] 9 [facility] ing:POLAB3 Repository 06/22/2018/ [id number] Ambulatory BMSBuilding:B [place] 8 6 [facility] Repository 06/16/2018 [id number] Ambulatory BMSBuilding:B [place] 7 MS.CF.[facility] Repository 06/16/2018 [id number] Ambulatory [place] 9 [facility] ing:[facility]S Repository 05/31/2018/ [id number] Ambulatory BMSBuilding:B [place] 8 4 [facility] Repository 05/31/2018 [id number] Ambulatory BMSBuilding:B [place] 0 [facility] Repository 05/29/2018 [id number] Ambulatory BMSBuilding:B [place] 2 [facility] Repository 11/15/2017 [id number] Ambulatory [place] 8 [facility] ing:LAB.FUTUR Repository E 11/10/2017 [id number] Ambulatory [place] 8 [facility] ing:POLAB3 Repository 11/01/2017 [id number] Ambulatory [place] 0 [facility] ing:[facility]S Repository 11/01/2017 [id number] Ambulatory BMSBuilding:W [place] 8 [facility] Repository 11/01/2017 [id number] Ambulatory [place] 0 [facility] ing:POLAB3 Repository PAYERS PAYERS ENCOUNTER GUARANTOR PAYER SUBSCRIBER SOURCE 08/02/2018 LILLIANA BLOOM3 Primary LILLIANA REBOLLEDO Insurance:MEDICARE FOSTERDOB: [place] PART A [facility] [id number] [facility] 14562Jkb: (406) Number: Repository [phone] () [id number] Date:2018-08-02 08/02/2018 Secondary LILLIANA Reyna [place] Insurance:MUTUAL OF FOSTERDOB: [facility] Number: [id number] Hospital [id number] Repository Date:1996[place] [address]KE: 08/02/2018 Tertiary NOT GIVENUNK [place] Insurance:SELF PAY [facility] Number: Effective Repository Date:2018-08-02 06/22/2018 LILLIANA BLOOM3 Primary LILLIANA [place] Insurance:MEDICARE FOSTERDOB: [place] PART A [facility] [id number] Hospital 14349Orc: (406) Number: Repository [phone] () [id number] Date:2018-05-31 06/22/2018 Secondary LILLIANA Reyna [place] Insurance:MUTUAL OF FOSTERDOB: [facility] Number: [id number] Hospital [id number] Repository Date:7193-95-91GLCDRW [place], [place] [address]WZ: 06/22/2018 Tertiary NOT GIVENUNK [place] Insurance:SELF PAY [facility] Number: Effective Repository Date:2018-06-22 06/16/2018 LILLIANA BLOOM3 Primary LILLIANA [place] Insurance:MEDICARE [place]OSTERDOB[place] [facility] [id number] Hospital [address]Ori: (406) Number: Repository [phone] () [id number] Date:2018-05-31 06/16/2018 Secondary LILLIANA D [place] Insurance:MUTUAL OF FOSTERDOB: [facility] Number: [id number] Hospital [id number] Repository Date:4822-42-07TUQEQO [place] [address]AN: 06/16/2018 Tertiary NOT GIVENUNK [place] Insurance:SELF PAY [facility] Number: Effective Repository Date:2018-06-16 06/16/2018 LILLIANA BLOOM3 Primary LILLIANA [place] Insurance:MEDICARE FOSTERDOB: [facility] [place] PART [place] [facility] [id number] Hospital [address]Voo: (406) Number: Repository [phone] () [id number] Date:2018-05-31 06/16/2018 Secondary LILLIANA D [place] Insurance:MUTUAL OF FOSTERDOB: [facility] Number: [id number] Hospital [id number] Repository Date:6174-99-16GOWXDV [place] [address]XL: 06/16/2018 Tertiary NOT GIVENUNK [place] Insurance:SELF PAY [facility] Number: Effective Repository Date:2018-05-31 05/31/2018 LILLIANA BLOOM3 Primary [place]ILLIANA [place]el [place] Insurance:MEDICARE FOSTERDOB: [place] PART [place] [facility] [id number] Hospital 03187Yxg: (406) Number: Repository [phone] () [id number] Date:2018-05-22 05/31/2018 Secondary LILLIANA D [place] Insurance:MUTUAL OF FOSTERDOB: [facility] Number: [id number] Hospital [id number] Repository Date:6670-33-42QKDQHI [place], [place] [address]OP: 05/31/2018 Tertiary NOT GIVENUNK [place] Insurance:SELF PAY [facility] Number: Effective Repository Date:2018-05-31 05/31/2018 LILLIANA JOSEPH313 Primary LILLIANA D [place] Insurance:MEDICARE FOSTERDOB: [place] PART [place] [facility] [id number] Hospital 87[address]Tdw: (057) Number: Repository [phone] () [id number] Date:2018-05-31 05/31/2018 Secondary LILLIANA D [place] Insurance:MUTUAL OF FOSTERDOB: [facility] Number: [id number] Hospital [id number] Repository Date:7033-34-83BNSZJE [place], [place] [address]RQ: 05/31/2018 Tertiary NOT GIVENUNK [place] Insurance:SELF PAY [facility] Number: Effective Repository Date:2018-05-31 05/29/2018 LILLIANA JOSEPH313 Primary LILLIANA D [place] Insurance:MEDICARE FOSTERDOB: [place] PART A [facility] [id number] Hospital [address]87[address]Vgs: (406) Number: Repository [phone] () [id number] Date:2018-05-29 05/29/2018 Secondary LILLIANA D [place] Insurance:MUTUAL OF FOSTERDOB: [facility] Number: [id number] Hospital [id number] Repository Date:6452-53-43KUTDAB [place], [place] [address]TE: 05/29/2018 Tertiary NOT GIVENUNK [place] Insurance:SELF PAY [facility] Number: Effective Repository Date:2018-05-29 11/15/2017 Primary LILLIANA D [place] Insurance:MEDICARE FOSTERDOB: [facility] PART A [facility] [id number] Hospital Number: Repository [id number] Date:2017-11-15 11/15/2017 Secondary NOT GIVENUNK [place] Insurance:SELF PAY [facility] Number: Effective Repository Date:2017-11-15 11/10/2017 LILLIANA BLOOM3 Primary LILLIANA [place] Insurance:MEDICARE FOSTERDOB: [place] [facility] [id number] Hospital [address]Ldi: (406) Number: Repository [phone] () [id number] Date:2017-11-10 11/10/2017 Secondary LILLIANA D [place] Insurance:MUTUAL OF FOSTERDOB: [facility] Number: [id number] Hospital [id number] Repository Date:1233-58-58EAWBLU [place], [place] [address]KG: 11/10/2017 Tertiary NOT GIVENUNK [place] Insurance:SELF PAY [facility] Number: Effective Repository Date:2017-11-10 11/01/2017 LILLIANA BLOOM3 Primary LILLIANA [place] Insurance:MEDICARE FOSTERDOB: [facility] [place] PART [place] [facility] [id number] Hospital 14953Srn: (406) Number: Repository [phone] () [id number] Date:2017-11-01 11/01/2017 Secondary LILLIANA D [place] Insurance:MUTUAL OF FOSTERDOB: [facility] Number: [id number] Hospital [id number] Repository Date:9837-51-31TZXYRR [place], [place] [address]VQ: 11/01/2017 Tertiary NOT GIVENUNK [place] Insurance:SELF PAY [facility] Number: Effective Repository Date:2017-11-01 11/01/2017 LILLIANA JOSEPH313 Primary [place]el [place] Insurance:MEDICARE FOSTERDOB: [facility] [place] PART [place] [facility] [id number] Hospital [address]Gog: (406) Number: Repository [phone] () [id number] Date:2017-11-01 11/01/2017 Secondary LILLIANA D [place] Insurance:MUTUAL OF FOSTERDOB: [facility] Number: [id number] Hospital [id number] Repository Date:3520-00-48DNVCDJ OF [place] [address]OC: 11/01/2017 Tertiary NOT GIVENUNK [place] Insurance:SELF PAY [facility] Number: Effective Repository Date:2017-11-01 11/01/2017 LILLIANA BLOOM3 Primary LILLIANA REBOLLEDO Insurance:MEDICARE FOSTERDOB: [facility] [place] PART A [facility] [id number] Hospital [address]Rya: (406) Number: Repository [phone] ( [id number] Date:2017-11-01 11/01/2017 Secondary NOT GIVENUNK [place] Insurance:SELF PAY [facility] Number: Effective Repository Date:2017-11-01
== END ==
PROVIDERS: Family Provider Family Medicine Geriatric Medicine; PCP Family Medicine Geriatric Medicine; Visit Provider Family Medicine Geriatric Medicine
DX: E55.9 Vitamin D deficiency, unspecified (principal); I10 Essential (primary) hypertension; M10.9 Gout, unspecified
CPT/HCPCS: 36415; 80053; 82306; 84443; 84550; 85025

== ENCOUNTER → 2018-11-02 10:00 | Outpatient (CLI) | payer MEDICARE, SELFPAY ==
[2018-09-22 13:11] VITALS: BMI 25.7
[2018-11-02 12:45] LABS: Absolute Lymphocyte Count 1.95 X10^3/ul (0.83-4.51); Absolute Neutrophil Count 4.1 X10^3/uL (2.0-7.7); Basophil# 0.07 X10^3/uL; Eosinophil# 0.27 X10^3/uL; Eosinophils% 3.9 % (0-5); Hemoglobin 14.4 g/dl (13.0-16.5); Lymphocyte # 1.95 X10^3/ul (4.0); Lymphocyte % 28.1 % (19-41); Mean Corpuscular Hgb 30.6 pg (27.0-32.0); Mean Corpuscular Volume 95.5 fL (80-94); Mean Platelet Vol. 9.6 fl (6.2-12.0); Monocyte# 0.57 X10^3/uL; Monocyte% 8.2 % (0-10); Neutrophil # 4.06 X10^3/uL (2.7-7.7); Neutrophil % 58.7 % (47-70); Platelet Count 213 K/mm3 (150-450); RBC Distribution Width CV 14.9 % (11.6-14.6); RBC Distribution Width SD 50.7 fl (35.1-43.9); Red Blood Count 4.71 M/mm3 (4.6-6.2); White Blood Count 6.9 K/mm3 (4.4-11.0)
[2018-11-02 12:48] LABS: POSITIVE COUNT NO; POSITIVE DIFFERENTIAL NO; POSITIVE MORPHOLOGY NO
[2018-11-02 13:08] LABS: Vitamin D,25 Hydroxy 21.9 ng/mL (29.95-100.01)
[2018-11-02 13:23] LABS: ALB/GLOB Ratio 1.2 RATIO (0.9-2.4); AST(SGOT) 24 U/L (15-37); Alanine Aminotransfer ALT/SGPT 31 U/L (16-61); Alkaline Phosphatase 70 U/L (45-117); Anion Gap 11 (5-15); BUN 19 mg/dL (7-18); BUN/Creat Ratio 17.3 RATIO (10-20); Calcium,Total 9.2 mg/dL (8.5-10.1); Chloride 99 mmol/L (98-107); EST Glomerular Filtration Rate 68 mL/min (>60); Est Glom Filt Rate - Afr Amer 83 mL/min (>60); Globulin 3.3 g/dL (2.2-4.2); Glucose 102 mg/dL (74-106); Potassium 3.5 mmol/L (3.5-5.1); Protein, Total 7.3 g/dL (6.4-8.2); Sodium Level 142 mmol/L (136-145); Thyroid Stim Hormone (TSH) 1.85 uIU/mL (0.358-3.74); Uric Acid 6.7 mg/dL (3.5-7.2)
== END ==
PROVIDERS: Family Provider Family Medicine Geriatric Medicine; PCP Family Medicine Geriatric Medicine; Visit Provider Family Medicine Geriatric Medicine
DX: E55.9 Vitamin D deficiency, unspecified (principal); I10 Essential (primary) hypertension; M10.9 Gout, unspecified
CPT/HCPCS: 36415; 80053; 82306; 84443; 84550; 85025

== ENCOUNTER → 2018-11-06 16:52 | Outpatient (CLI) | payer MEDICARE, OTHER, SELFPAY ==
[2018-09-22 13:11] VITALS: BMI 25.7
== END ==
PROVIDERS: Family Provider Family Medicine Geriatric Medicine; PCP Family Medicine Geriatric Medicine; Referring Provider Nurse Practitioner Adult Health; Visit Provider Nurse Practitioner Adult Health
DX: R31.9 Hematuria, unspecified (principal)
CPT/HCPCS: 87086; 87088

== ENCOUNTER → 2018-11-28 14:56 | Outpatient (CLI) | payer MEDICARE, OTHER, SELFPAY ==
[2018-09-22 13:11] VITALS: BMI 25.7
--- NOTE | 2018-11-28 09:20 | LES_PTH ---
PATIENT: LILLIANA JOSEPH LOC: POLAB3 U#:[id number] AGE/SX: 89/M ROOM: RE11/28/[address]: Dr. Neto Rashid MD : 1935 BED: DIS: SPEC #: [id number] RECD: 11/29/18 12:41 STATUS: LEXY FARIDEH #: [id number] IGNACIO: 11/28/18 09:[address]: Neto Rashid Chi DEPT: SURGICAL PATHOLOGY RECD BY: Alfie House Tissues: A - Skin of hand and finger, NOS B - Skin of forearm, NOS C - Skin of forearm, NOS Procedures: Surgery Specimen Level IV HEADER OPERATION: Not noted PRE-OP DIAGNOSIS: Not noted TISSUE SUBMITTED: A - Left hand top, B - Left forearm top, C - Left inside of forearm MICROSCOPIC DIAGNOSIS A. Left hand top lesion, biopsy: Actinic keratosis with mild atypia and overlying cutaneous horn. Extensive solar elastosis and dermal chronic inflammation. Negative for malignancy. B. 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 Solar elastosis. Perineural invasion is not seen. See comment. C. Left inside forearm lesion, biopsy: Actinic keratosis with moderate atypia with overlying cutaneous horn. Solar elastosis and dermal chronic inflammation. SJ:rg 11/30/18 COMMENT This case has been reviewed in consultation with Dr. Bartlett who concurs with the above diagnosis. IDC:AM MICROSCOPIC DESCRIPTION Slides are reviewed. GROSS DESCRIPTION A - Received in fixative is one container labeled with the patient's name and designated left hand. The specimen consists of a piece of curtis-white skin measuring 0.6 x 0.5 cm and 0.1 cm in thickness. There is a raised, curtis lesion of the surface measuring 0.2 cm in greatest dimension. The specimen is inked and submitted entirely in one cassette. It will be bisected at the time of embedding. B - Received in fixative is one container labeled with the patient's name and designated left forearm top. The specimen consists of a piece of curtis-white skin measuring 0.6 x 0.4 cm. There is a raised, brown lesion on the surface measuring 0.4 cm in greatest dimension. The specimen is inked and submitted entirely in one cassette. It will be bisected at the time of embedding. C - Received in fixative is one container labeled with the patient's name and designated left inside forearm. The specimen consists of a shave biopsy of curtis-white skin measuring 0.5 x 0.5 cm. The specimen is inked and submitted entirely in one cassette. It will be bisected at the time of embedding. / SJ:rg 11/29/18 TC:0 CPT: 23621 x3
== END ==
PROVIDERS: Family Provider Family Medicine Geriatric Medicine; PCP Family Medicine Geriatric Medicine; Visit Provider Family Medicine Geriatric Medicine
DX: C44.629 Squamous cell carcinoma of skin of left upper limb, including shoulder (principal); L57.0 Actinic keratosis; L57.8 Other skin changes due to chronic exposure to nonionizing radiation
CPT/HCPCS: 88305

== ENCOUNTER → 2019-10-12 | Outpatient (CLI) | payer MEDICARE, OTHER, SELFPAY ==
[2019-10-08 12:57] VITALS: BMI 25.9
--- NOTE | 2019-10-12 08:26 | CDU_ITS ---
Reason For Study: Bilateral Bruits Rt. Velocities/BP Lt. Velocities/BP Prox CCA 124/14 cm/sec. Prox CCA 109/16 cm/sec. Mid CCA 108/16 cm/sec. Mid CCA 87/18 cm/sec. Dist CCA 86/16 cm/sec. Dist CCA 78/14 cm/sec. Prox ICA 68/15 cm/sec. Prox ICA 78/16 cm/sec. Mid ICA 69/18 cm/sec. Mid ICA 82/20 cm/sec. Dist ICA 76/22 cm/sec. Dist ICA 63/18 cm/sec. Rt. ICA/CCA = 0.7. Lt. ICA/CCA = 0.9. Prox ECA 211/12 cm/sec. Prox ECA 402/21 cm/sec. Rt. Vert. 44/11 cm/sec. Lt. Vert. 56/14 cm/sec. Right Extracranial There is heterogeneous, irregular atherosclerotic plaque noted in the right common carotid artery. There is heterogeneous, irregular atherosclerotic plaque noted in the right internal carotid artery. There is heterogeneous, irregular atherosclerotic plaque noted in the right external carotid artery. Antegrade flow is noted in the right vertebral artery. Left Extracranial There is heterogeneous, irregular atherosclerotic plaque noted in the left common carotid artery. There is heterogeneous, irregular atherosclerotic plaque noted in the left internal carotid artery. There is heterogeneous, irregular atherosclerotic plaque noted in the left external carotid artery. Antegrade flow is noted in the left vertebral artery. Procedure Carotid Duplex 53884. Exam performed in department. Interpretation Summary Mild (<50%) stenosis right extracranial internal carotid. Mild (<50%) stenosis left extracranial internal carotid. Flow within the vertebral arteries is antegrade bilaterally. Ordering Physician: Lucita Evans Referring Physician: Neto Rashid Chi Performed By: Evelyn Lees, PALMIRA, RVT
== END | disposition home or self-care (01) ==
LOC: CVS 08:26
PROVIDERS: PCP Family Medicine Geriatric Medicine; Referring Provider Physician Assistant Medical; Visit Provider Physician Assistant Medical
DX: R09.89 Other specified symptoms and signs involving the circulatory and respiratory systems (principal)
CPT/HCPCS: 93880

== ENCOUNTER → 2020-06-11 | Outpatient (CLI) | payer MEDICARE, OTHER, SELFPAY ==
[2019-10-08 12:57] VITALS: BMI 25.9
[2020-06-11 17:00] LABS: Absolute Lymphocyte Count 1.58 X10^3/uL (0.83-4.51); Absolute Neutrophil Count 3.6 X10^3/uL (2.0-7.7); Basophil# 0.06 X10^3/uL; Eosinophil# 0.16 X10^3/uL; Eosinophils% 2.7 % (0-5); Hematocrit 40.9 % (40-54); Hemoglobin 13.2 g/dL (13.0-16.5); Lymphocyte # 1.58 X10^3/ul (4.0); Lymphocyte % 26.9 % (19-41); Mean Corp Hgb Conc 32.3 g/dL (32-36); Mean Corpuscular Hgb 30.7 pg (27.0-32.0); Mean Corpuscular Volume 95.1 fL (80-94); Mean Platelet Vol. 9.5 fl (6.2-12.0); Monocyte# 0.46 X10^3/uL; Monocyte% 7.8 % (0-10); NRBC Flagged by Analyzer 0 % (0-5); Neutrophil # 3.59 X10^3/uL (2.7-7.7); Neutrophil % 61.3 % (47-70); Platelet Count 211 K/mm3 (150-450); RBC Distribution Width SD 51.8 fl (35.1-43.9); White Blood Count 5.9 K/mm3 (4.4-11.0)
[2020-06-11 17:20] LABS: Vitamin D,25 Hydroxy 28.9 ng/mL
[2020-06-11 17:39] LABS: ALB/GLOB Ratio 1.1 RATIO (0.9-2.4); AST(SGOT) 27 U/L (15-37); Alanine Aminotransfer ALT/SGPT 32 U/L (16-61); Albumin, Serum 3.8 g/dL (3.2-5.0); Alkaline Phosphatase 71 U/L (45-117); Anion Gap 7 (5-15); BUN 22 mg/dL (7-18); BUN/Creat Ratio 21.8 RATIO (10-20); Calcium,Total 9.2 mg/dL (8.5-10.1); Chloride 100 mmol/L (98-107); Creatinine, Serum 1.01 mg/dL (0.70-1.30); EST Glomerular Filtration Rate 75 mL/min (>60); Est Glom Filt Rate - Afr Amer 91 mL/min (>60); Globulin 3.6 g/dL (2.2-4.2); Glucose 92 mg/dL (74-106); Potassium 3.6 mmol/L (3.5-5.1); Protein, Total 7.4 g/dL (6.4-8.2); Sodium Level 138 mmol/L (136-145); Thyroid Stim Hormone (TSH) 1.75 uIU/mL (0.358-3.74); Uric Acid 5.5 mg/dL (3.5-7.2)
== END | disposition home or self-care (01) ==
LOC: POLAB3 13:23
PROVIDERS: PCP Family Medicine Geriatric Medicine; Visit Provider Family Medicine Geriatric Medicine
DX: I10 Essential (primary) hypertension (principal); E55.9 Vitamin D deficiency, unspecified; M10.9 Gout, unspecified
CPT/HCPCS: 36415; 80053; 82306; 84443; 84550; 85025

== ENCOUNTER → 2020-12-11 14:31 | Outpatient (CLI) | payer MEDICARE, OTHER, SELFPAY ==
[2020-11-25 14:03] VITALS: BMI 26.3
[2020-12-11 16:32] LABS: Absolute Lymphocyte Count 1.69 X10^3/uL (0.83-4.51); Absolute Neutrophil Count 3.9 X10^3/uL (2.0-7.7); Basophil# 0.06 X10^3/uL; Basophil% 0.9 % (0-1); Eosinophil# 0.18 X10^3/uL; Eosinophils% 2.8 % (0-5); Hematocrit 39.9 % (40-54); Lymphocyte # 1.69 X10^3/ul (4.0); Lymphocyte % 26.7 % (19-41); Mean Corp Hgb Conc 32.6 g/dL (32-36); Mean Corpuscular Hgb 31.2 pg (27.0-32.0); Mean Corpuscular Volume 95.7 fL (80-94); Mean Platelet Vol. 9.4 fl (6.2-12.0); Monocyte# 0.54 X10^3/uL; Monocyte% 8.5 % (0-10); NRBC Flagged by Analyzer 0 % (0-5); Neutrophil # 3.85 X10^3/uL (2.7-7.7); Neutrophil % 60.9 % (47-70); Platelet Count 208 K/mm3 (150-450); RBC Distribution Width CV 15.2 % (11.6-14.6); RBC Distribution Width SD 52.9 fl (35.1-43.9); Red Blood Count 4.17 M/mm3 (4.6-6.2); White Blood Count 6.3 K/mm3 (4.4-11.0)
[2020-12-11 17:03] LABS: Vitamin D,25 Hydroxy 26.7 ng/mL
[2020-12-11 17:12] LABS: ALB/GLOB Ratio 1.2 RATIO (0.9-2.4); AST(SGOT) 32 U/L (15-37); Alanine Aminotransfer ALT/SGPT 32 U/L (16-61); Albumin, Serum 3.8 g/dL (3.2-5.0); Alkaline Phosphatase 69 U/L (45-117); Anion Gap 6 (5-15); BUN 29 mg/dL (7-18); BUN/Creat Ratio 25.4 RATIO (10-20); Calcium,Total 9.5 mg/dL (8.5-10.1); Chloride 103 mmol/L (98-107); Creatinine, Serum 1.14 mg/dL (0.70-1.30); EST Glomerular Filtration Rate 65 mL/min (>60); Est Glom Filt Rate - Afr Amer 79 mL/min (>60); Globulin 3.1 g/dL (2.2-4.2); Glucose 92 mg/dL (74-106); Potassium 3.7 mmol/L (3.5-5.1); Protein, Total 6.9 g/dL (6.4-8.2); Sodium Level 140 mmol/L (136-145); Thyroid Stim Hormone (TSH) 0.59 uIU/mL (0.358-3.74); Uric Acid 5.7 mg/dL (3.5-7.2)
== END ==
PROVIDERS: PCP Family Medicine Geriatric Medicine; Visit Provider Family Medicine Geriatric Medicine
DX: E55.9 Vitamin D deficiency, unspecified (principal); I10 Essential (primary) hypertension; M10.9 Gout, unspecified
CPT/HCPCS: 36415; 80053; 82306; 84443; 84550; 85025

== ENCOUNTER → 2021-05-27 10:45 | Outpatient (CLI) | payer MEDICARE, OTHER, SELFPAY ==
[2021-05-27 12:11] LABS: Absolute Lymphocyte Count 1.48 X10^3/uL (0.83-4.51); Absolute Neutrophil Count 4.5 X10^3/uL (2.0-7.7); Basophil# 0.09 X10^3/uL; Basophil% 1.3 % (0-1); Eosinophil# 0.26 X10^3/uL; Eosinophils% 3.7 % (0-5); Hemoglobin 13.1 g/dL (13.0-16.5); Lymphocyte # 1.48 X10^3/ul (0.83-4.51); Lymphocyte % 21.2 % (19-41); Mean Corpuscular Hgb 30.2 pg (27.0-32.0); Mean Corpuscular Volume 94.5 fL (80-94); Mean Platelet Vol. 9.3 fl (6.2-12.0); Monocyte% 8.6 % (0-10); NRBC Flagged by Analyzer 0 % (0-5); Neutrophil # 4.53 X10^3/uL (2.7-7.7); Neutrophil % 64.9 % (47-70); Platelet Count 208 K/mm3 (150-450); RBC Distribution Width CV 14.9 % (11.6-14.6); RBC Distribution Width SD 51.8 fl (35.1-43.9); Red Blood Count 4.34 M/mm3 (4.6-6.2)
[2021-05-27 12:28] LABS: ALB/GLOB Ratio 1.1 RATIO (0.9-2.4); AST(SGOT) 17 U/L (15-37); Alanine Aminotransfer ALT/SGPT 26 U/L (16-61); Albumin, Serum 3.6 g/dL (3.2-5.0); Alkaline Phosphatase 74 U/L (45-117); Anion Gap 4 (5-15); BUN 24 mg/dL (7-18); BUN/Creat Ratio 25.6 RATIO (10-20); Calcium,Total 9.3 mg/dL (8.5-10.1); Chloride 102 mmol/L (98-107); Cholesterol 222 mg/dL (200); Creatinine, Serum 0.94 mg/dL (0.70-1.30); EST Glomerular Filtration Rate 82 mL/min (>60); Est Glom Filt Rate - Afr Amer 99 mL/min (>60); Globulin 3.3 g/dL (2.2-4.2); Glucose 99 mg/dL (74-106); High Density Lipoprotein 44 mg/dL; Potassium 3.6 mmol/L (3.5-5.1); Protein, Total 6.9 g/dL (6.4-8.2); Sodium Level 139 mmol/L (136-145); Triglycerides 272 mg/dL; Very Low Density Lipoprotein 54 mg/dL (5-40)
== END ==
PROVIDERS: PCP Internal Medicine; Referring Provider Internal Medicine; Visit Provider Internal Medicine
DX: I10 Essential (primary) hypertension (principal); E78.5 Hyperlipidemia, unspecified; N40.0 Benign prostatic hyperplasia without lower urinary tract symptoms; Z12.5 Encounter for screening for malignant neoplasm of prostate
CPT/HCPCS: 36415; 80053; 80061; 84153; 85025; G0103

== ENCOUNTER → 2021-06-18 | Outpatient (CLI) | payer MEDICARE, OTHER, SELFPAY ==
--- NOTE | 2021-06-18 | IMM_PTH ---
PATIENT: LILLIANA JOSEPH LOC: XOCHILT U#:[id number] AGE/SX: 86/M ROOM: RE06/18/[address]: Dr. Nicolás Edwards MD : 1935 BED: DIS: 06/18/2021 SPEC #: [id number] RECD: 06/19/21 12:25 STATUS: LEXY REQ #: [id number] IGNACIO: 06/18/21 00:[address]: Nicolás Edwards DEPT: IMMUNOHISTOCHEMISTRY RECD BY: Joanne Leal ENTERED: 06/19/21 12:26 SP TYPE: IMMUNO OTHR DR: Dr. Paul Ortega MD Tissues: D - PROSTATE LEFT F - PROSTATE LEFT Procedures: 34BE12 (add) P40 (add) 34BE12 (initial) PHYSICIAN & INSTITUTION [place] [address] SPECIMEN INFORMATION: Tissue Source: D - Left prostate, apex, core biopsy, F - Left prostate, base, core biopsy Clinical Info: Elevated PSA Specimen Number: [id number] D & F CPT code: 70400, 53769 x3 METHODOLOGY: Deparaffinized sections of prefer/formalin-fixed tissue or PAP/DQ stained slides are incubated with monoclonal/polyclonal antibodies/oligonucleotide probes. Localization is made via biotin free immunoperoxidase method. Appropriate controls are performed and reacted as expected. Results on target cell population are indicated in the following table: RESULTS: ANTIBODY / CLONE RESULT Block D P40 (BC28) positive 34BE12 (34BE12) positive Block F P40 (BC28) negative 34BE12 (34BE12) negative These tests were developed and their performance characteristics determined by [facility]. They may not have been cleared or approved by the U.S. Food and Drug Administration. The FDA has determined that such clearance or approval is not necessary. The above immunohistochemical/dualISH markers are ordered and reviewed by the Pathologist. INTERPRETATION: D. Left prostate, apex, core biopsy: Focal high-grade prostatic intraepithelial neoplasia (HGPIN). F. Left prostate, base, core biopsy: Adenocarcinoma. SJ:christine 06/22/2021
--- NOTE | 2021-06-18 08:00 | PROSBIL_PTH ---
PATIENT: LILLIANA JOSEPH LOC: [facility] U#:[id number] AGE/SX: 86/M ROOM: RE06/18/[address]: Dr. Nicolás Edwards MD : [id number] BED: DIS: 06/18/2021 SPEC #: [id number] RECD: 06/18/21 10:44 STATUS: LEXY REQ #: [id number] IGNACIO: 06/18/21 08:[address]: Nicolás Edwards DEPT: SURGICAL PATHOLOGY RECD BY: Dinorah Esparza ENTERED: 06/18/21 11:47 SP TYPE: PROST BX BLOSSOM DR: Dr. Paul Ortega MD Tissues: A - PROSTATE RIGHT B - PROSTATE RIGHT C - PROSTATE RIGHT D - PROSTATE LEFT E - PROSTATE LEFT F - PROSTATE LEFT Procedures: PROSTATE BX HEADER OPERATION: Prostate biopsy PRE-OP DIAGNOSIS: R97.20 TISSUE SUBMITTED: A - Right apex, B - Right mid, C - Right base, D - Left apex, E - Left mid, F - Left base MICROSCOPIC DIAGNOSIS A. Right prostate, apex, core biopsy: Prostatic adenocarcinoma. Ucon grade: 4+3=7 Number of cores involved: 1/1 Proportion of tissue involved: ~30% Perineural invasion: Not identified. Greatest tumor length: 0.5 cm B. Right prostate, mid, core biopsy: Prostatic adenocarcinoma. Ucon grade: 4+3=7 Number of cores involved: 1/2 Proportion of tissue involved: ~5% Perineural invasion: Not identified. Greatest tumor length: 0.1 cm C. Right prostate, base, core biopsy: Prostatic tissue, negative for malignancy. D. Left prostate, apex, core biopsy: Focal high-grade prostatic intraepithelial neoplasia (HGPIN). See comment. E. Left prostate, mid, core biopsy: Focal high-grade prostatic intraepithelial neoplasia (HGPIN). F. Left prostate, base, core biopsy: Prostatic adenocarcinoma. Ucon grade: 3+3=6 Number of cores involved: 1/1 Proportion of tissue involved: 5-10% Perineural invasion: Not identified. Greatest tumor length: 0.6 cm, discontinuous Focal high-grade prostatic intraepithelial neoplasia (HGPIN). See comment. SJ:rg 06/19/2021 COMMENT D & F. Immunohistochemistry ([id number]) supports the above diagnosis. MICROSCOPIC DESCRIPTION Slides are reviewed. GROSS DESCRIPTION A - Received is one container designated prostate, right apex. The specimen consists of one elongated fragment of light curtis-white soft tissue measuring 1.5 cm in length and 0.1 cm in diameter. The specimen is totally submitted in one cassette. B - Received is one container designated prostate, right mid. The specimen consists of two elongated fragments of light curtis-white soft tissue measuring 0.4 and 1 cm in length and 0.1 cm in diameter. The specimen is totally submitted in one cassette. C - Received is one container designated prostate, right base. The specimen consists of one elongated fragment of light curtis-white soft tissue measuring 1.2 cm in length and 0.1 cm in diameter. The specimen is totally submitted in one cassette. D - Received is one container designated prostate, left apex. The specimen consists of one elongated fragment of light curtis-white soft tissue measuring 1 cm in length and 0.1 cm in diameter. The specimen is totally submitted in one cassette. E - Received is one container designated prostate, left mid. The specimen consists of one elongated fragment of light curtis-white soft tissue measuring 1 cm in length and 0.1 cm in diameter. The specimen is totally submitted in one cassette. F - Received is one container designated prostate, left base. The specimen consists of one elongated fragment of light curtis-white soft tissue measuring 1.5 cm in length and 0.1 cm in diameter. The specimen is totally submitted in one cassette. / SJ:rg 06/18/21 TC:0 CPT: G0146
== END | disposition home or self-care (01) ==
LOC: LABSPEC 10:54
PROVIDERS: PCP Internal Medicine; Visit Provider Urology
DX: R97.20 Elevated prostate specific antigen [PSA] (principal)
CPT/HCPCS: 88305; 88341; 88342; G0416

== ENCOUNTER → 2021-06-24 08:14 | Outpatient (CLI) | payer MEDICARE, OTHER, SELFPAY ==
--- NOTE | 2021-06-24 08:17 | NM_ITS ---
CLINICAL: 86-year-old male with reported history of carcinoma of the prostate. WHOLE BODY 99m Tc MDP RADIONUCLIDE BONE SCINTIGRAPHY COMPARISON: None available FINDINGS: Following the intravenous administration of 26.1 mCi of 99m Tc MDP, whole body bone images reveal: 1. Increased radiopharmaceutical concentration is defined in the mid cervical spine posteriorly on the left, lower cervical spine posteriorly on the right, second lumbar vertebra posteriorly on the left, third-fifth lumbar vertebra, the left hand, knees bilaterally, acromioclavicular and sternoclavicular compartments of both shoulders. 2. The remaining skeletal structures are scintigraphically unremarkable with normal-appearing renal images and urinary bladder activity identified. NM/Bone Scan Whole Body IMPRESSION: 1. The increase in radiopharmaceutical concentration identified in the cervical and lumbar spine, left hand, bilateral shoulders, both knees is most consistent with degenerative arthritis. Plain film radiography correlation may be of benefit in the lumbar spine. 2. There is no definitive typical scintigraphic evidence of diffuse axial skeletal metastatic disease on the current examination. Electronically Signed: Darío Stafford DO at 23:16 EDT Tel , Service support ,
== END ==
PROVIDERS: PCP Internal Medicine; Referring Provider Urology; Visit Provider Urology
DX: C61 Malignant neoplasm of prostate (principal)
CPT/HCPCS: 78306; A9503

== ENCOUNTER → 2021-06-29 14:47 | Outpatient (CLI) | payer MEDICARE, OTHER, SELFPAY ==
--- NOTE | 2021-06-29 14:49 | CT_ITS ---
STUDY: CT ABDOMEN AND PELVIS WITH CONTRAST REASON FOR EXAM: Male, 86 years old. Newly diagnosed prostate cancer. RADIATION DOSAGE (If Supplied By Facility): CTDIvol = ( 14.01 ) mGy, DLP = ( 997.06 ) mGycm TECHNIQUE: Transaxial images were obtained from the dome of the diaphragm to the symphysis pubis without oral contrast. IV 100mL Isovue-370 was administered. Sagittal and coronal images were reconstructed. Individualized dose optimization techniques were used for this CT. COMPARISON: None. FINDINGS: Mild linear scarring in the posterior medial segments of the right and left lower lobes. Coronary artery calcification. There is a 1.97 m cyst in the anterior inferior aspect of the right lobe of the liver. Distended gallbladder. Small gallstones are seen in the region of the neck of the gallbladder. Normal spleen. Normal pancreas. Normal bilateral adrenal glands. Mild degree of bilateral renal cortical thinning. There is a 9.1 mm cyst in the anterior midportion of the right kidney. There is a small hiatal hernia. Normal small intestine. Normal colon. The appendix is visualized and appears normal. There is diffuse atherosclerotic calcification of the abdominal aorta and its major visceral branches, without a demonstrated aneurysm. Normal inferior vena cava. Normal retroperitoneum. Diffuse bladder wall thickening although the bladder is not completely distended. There is enlargement of the prostate gland. This causes indentation at the bladder base. There is evidence of a posterior prostatic calcification. Normal abdominal wall. There are diffuse degenerative changes of the visualized lumbar spine. CT/Abdomen/Pelvis WITH Contrast IMPRESSION: Prostatic enlargement with indentation at the bladder base. Bladder wall thickening. Mildly distended gallbladder with evidence of a small gallstones in the neck of the gallbladder. Electronically Signed: John Campbell MD at 10:22 EDT , Service support ,
[2021-07-01 07:40] LABS: CREATININE FINGERSTICK 0.7 mg/dL (0.70-1.30); EGFR FINGERSTICK > 60.0000 mL/min (>60)
== END ==
PROVIDERS: PCP Internal Medicine; Referring Provider Urology; Visit Provider Urology
DX: C61 Malignant neoplasm of prostate (principal)
CPT/HCPCS: 74177; Q9967

== ENCOUNTER 2021-07-29 11:25 | Day surgery (SDC) | payer MEDICARE, OTHER, SELFPAY ==
[2021-07-29 11:51] VITALS: BP 129/71; PULSE 74; RESP 16; TEMP 36.2; O2SAT 100; BMI 25.9
[2021-07-29] MEDS: Lactated Ringers 1,000 ML 15 ML IV (12:14)
[2021-07-29] MEDS: Cefazolin 2 GM in 0.9% Normal Saline 100 ML IV (14:25)
[2021-07-29] MEDS: Lidocaine 1% (30 ml sdv) 30 ML Vial (14:45)
--- NOTE | 2021-07-29 14:52 | PCM.HP.STD ---
HPI - General HPI Narrative LILLIANA JOSEPH, is a 86 M who presents with a h/o prostate cancer and comes in placement of spacer gel and gold markers for prostate cancer. [facility] Medical History Anxiety Arthritis Arthritis Asthma Back pain BPH (benign prostatic hyperplasia) Cancer Cardiology follow-up encounter Carotid stenosis, left Easy bruising Essential (primary) hypertension Flu vaccine need Gout High cholesterol History of echocardiogram History of kidney stones History of stress test Hyperlipidemia Hypertension Leg cramps Non-smoker Prostate disease Wears glasses Wears partial dentures Home Medications aspirin 81 mg tablet,delayed release 81 mg PO DAILY 05/31/18 [History Last Taken 07/14/21] finasteride 5 mg tablet 5 mg PO DAILY 05/31/18 [History Last Taken Unknown] lisinopril 20 mg-hydrochlorothiazide 25 mg tablet 1 tab PO DAILY tab 05/31/18 [History Last Taken Unknown] multivitamin 1 tab PO DAILY 05/31/18 [History Last Taken Unknown] omega-3 fatty acids-fish oil 300 mg-1,000 mg capsule 2 cap PO DAILY cap 05/31/18 [History Last Taken Unknown] vit C 250 mg-vit E 90 mg-zinc 40 mg-copper 1 ll-osunse-shmxoq capsule 1 tab PO BID 05/31/18 [History Last Taken Unknown] amlodipine 10 mg tablet 10 mg PO DAILY #90 tab 07/06/19 [Rx Last Taken Unknown] allopurinol 300 mg tablet 300 mg PO DAILY 05/27/21 [History Last Taken Unknown] doxazosin 4 mg tablet 4 mg PO BID 90 Days #180 tab 05/27/21 [Rx Last Taken Unknown] gabapentin 100 mg capsule 200 mg PO BID 90 Days #360 cap 05/27/21 [Rx Last Taken Unknown] lisinopril 20 mg tablet 20 mg PO QHS #90 tab 05/27/21 [Rx Last Taken Unknown] calcium carbonate-vitamin D3 1 tab PO DAILY 07/22/21 [History Last Taken Unknown] cholecalciferol (vitamin D3) [Vitamin D3] 50 mcg PO DAILY 07/22/21 [History Last Taken Unknown] cyanocobalamin (vitamin B-12) [Vitamin B-12] 1,000 mcg PO DAILY 07/22/21 [History Last Taken Unknown] Allergy/AdvReac Type Severity Reaction Status Date / Time No Known Allergies Allergy Verified 07/29/21 11:49 Family History Mother Myocardial infarction Age 82 Brother Alcoholism Brother Cancer prostate Parkinson disease Father Cancer PROSTATE Other Arthritis Asthma Surgical History H/O right inguinal hernia repair History of cataract surgery Hx of tonsillectomy Social History adopted: No housing: apartment current occupational exposures/hazards: No Smoking Status: Never smoker alcohol intake: never substance use type: does not use caffeine: Yes Type: coffee Number of servings: 2 Vital Signs Vital Signs Vital Signs: 07/29/21 11:51 Temperature 97.2 F L Temperature Source Temporal Pulse Rate 74 Respiratory Rate 16 Respiratory Pattern Normal Blood Pressure 129/71 H Blood Pressure Mean 90 Blood Pressure Source Monitor Blood Pressure Position Sitting Blood Pressure Location Right Arm Pulse Ox 100 Oxygen Delivery Method Room Air Weight Weight: 84.3 kg Body Mass Index (BMI) 25.9
--- NOTE | 2021-07-29 14:53 | OP.PCM_ITS ---
Report of Operation Date of Procedure: 07/29/21 Pre-Operative Diagnosis: Prostate cancer Post-Operative Diagnosis: The same Surgery/Procedure Performed:: Placement of gold fiducial markers for radiation therapy planning and placement of spacer organ at risk gel matrix Description of Surgical Findings:: Patient was taken back to the operating room after smooth induction of anesthesia he was placed supine on the table. The genitals and perineum were prepped and draped in usual sterile fashion. I then introduced a biplanar ultrasound probe into the rectum and performed ultrasonography and identified the Denonvilliers' fascia the prostate mid base and apex and seminal vesicles. The spacer gel mix was then prepared on the back table per manufactures instruction. Under ultrasound guidance in the midline perineum a bevel needle down we advanced through the perineum below the prostate into the space of Denonvilliers' fascia. This space which could be identified by ultrasound with a bright white layer between the prostate and the rectum. I then injected a puff of normal saline to identify the space further. After I confirmed that the needle was in the correct space in the mid prostate and the space of Denonvilliers' fascia between the rectum and the prostate. Then over the course of 15 seconds the gel matrix was injected slowly there was nice separation between the prostate and the rectum at the gel matrix was injected. The position of the gel matrix was confirmed by ultrasound. Then the injection needle was removed intact. The penis and testicles were prepped and draped in usual sterile fashion, ultrasound probe was placed into the rectum and biplanar ultrasound was performed on the prostate. Identified the base mid and apex of the prostate identified the transition zone prostate. Then using a needle the first marker shipments was placed into the right base of the prostate, the second marker shipments was placed in the left base of the prostate, and the third core marker was placed in the right apex of the prostate after all 3 markers were placed the placement of the markers were confirmed by ultrasonography. Patient's perineum was cleaned patient was taken out of stirrups and then taken back to the PACU in good condition. Surgeon: iesha Type of Anesthesia: General Admit VTE Documentation VTE Present on Admission: No VTE Mechan Device Prophylaxis: SCD's VTE Pharm Prophylaxis ordered?: No
--- NOTE | 2021-07-29 14:53 | PCM.DC ---
Discharge Instructions Diet Discharge Diet: No restrictions Activity Discharge Activity: Return to Normal Activity and May Not Drive (while taking narcotic pain medications.) Dressing / Incision Call your doctor if you observe: Fever of 101 or Higher Follow Up Care Please Follow Up With: Nicolás Edwards MD When: Call [phone] for an appointment Test Results: Test results from this visit will be discussed in further detail at your follow-up appointment, if applicable. Discharge Plan Admission Primary Reason for Your Visit: prostate cancer Attending Provider: Nicolás Edwards Primary Care Provider: Paul Ortega Discharge Orders/Prescriptions Prescriptions: Continued finasteride 5 mg tablet 5 mg PO DAILY RF: 0 aspirin [Adult Aspirin Regimen] 81 mg tablet,delayed release (DR/EC) 81 mg PO DAILY RF: 0 multivitamin tablet 1 tab PO DAILY RF: 0 omega-3 fatty acids-fish oil [Fish Oil] 300-1,000 mg capsule 2 cap PO DAILY RF: 0 PreserVision AREDS-2 [id number] ic-hkki-ml-mg capsule 1 tab PO BID RF: 0 lisinopril-hydrochlorothiazide 20-25 mg tablet 1 tab PO DAILY RF: 0 allopurinol 300 mg tablet 300 mg PO DAILY RF: 0 amlodipine [Norvasc] 10 mg tablet 10 mg PO DAILY Qty: 90 RF: 5 doxazosin 4 mg tablet 4 mg PO BID 90 Days Qty: 180 RF: 2 lisinopril 20 mg tablet 20 mg PO QHS Qty: 90 RF: 2 gabapentin 100 mg capsule 200 mg PO BID 90 Days Qty: 360 RF: 0 cyanocobalamin (vitamin B-12) [Vitamin B-12] 1,000 mcg Tablet 1,000 mcg PO DAILY RF: 0 calcium carbonate-vitamin D3 600 mg(1,500mg) -200 unit Tablet 1 tab PO DAILY RF: 0 cholecalciferol (vitamin D3) [Vitamin D3] 50 mcg (2,000 unit) Capsule 50 mcg PO DAILY RF: 0 Referrals / Follow Up: Paul Ortega MD [Primary Care Provider] - Nicolás Edwards MD [STAFF PHYSICIAN] - Disposition Disposition (needs filled in before D/C Order can be placed): Home, Self Care
[2021-07-29 14:55] VITALS: BP 129/71; BP 89/61; PULSE 62; RESP 16; TEMP 36.2; O2SAT 95
[2021-07-29 15:00] VITALS: BP 101/61; BP 129/71; PULSE 59; RESP 16; O2SAT 95
[2021-07-29 15:05] VITALS: BP 115/74; BP 129/71; PULSE 60; RESP 16; O2SAT 96
[2021-07-29 15:10] VITALS: BP 123/70; BP 129/71; PULSE 62; RESP 16; TEMP 36.5; O2SAT 97
[2021-07-29 15:30] VITALS: BP 129/71; BP 133/74; PULSE 61; RESP 16; TEMP 36.5; O2SAT 98
--- NOTE | 2021-09-07 11:36 | RAD_ITS ---
STUDY: X-RAY - UNILATERAL RIBS ( RIGHT ) WITH CHEST REASON FOR EXAM: Male, 86 years old. History of right rib fractures. TECHNIQUE - RIBS: 5 view(s) of the ribs. TECHNIQUE - CHEST: Single frontal view of the chest. COMPARISON: None. FINDINGS - RIBS: Osteopenia of the osseous structures. Nondisplaced fractures of the right second, third, eighth and ninth ribs. FINDINGS - CHEST: Hyperexpansion. There is no demonstrated pleural abnormality. Normal size heart. Normal mediastinum and farideh. Normal visualized pulmonary arteries. Aortic tortuosity. Normal visualized thoracic spine. Normal visualized ribs, clavicles, and shoulders. There is no demonstrated abnormality of the visualized soft tissue structures of the upper abdomen. RAD/Ribs Uni Min 3V w/PA Chest IMPRESSION: RIBS: Osteopenia with right second, third, eighth and ninth rib fractures. No pneumothorax. CHEST: Mild hyperexpansion. Electronically Signed: Kyaw Moyer MD at 12:25 EST , Service support ,
== END 2021-07-29 15:42 | disposition home or self-care (01) ==
LOC: SDC 11:27 → AC 11:29
PROVIDERS: PCP Internal Medicine; Referring Provider Urology; Visit Provider Urology
PROC: (CPT 55874; principal; 2021-07-29 13:25)
DX: C61 Malignant neoplasm of prostate (principal); F41.9 Anxiety disorder, unspecified; M19.90 Unspecified osteoarthritis, unspecified site; J45.909 Unspecified asthma, uncomplicated; I10 Essential (primary) hypertension; E78.5 Hyperlipidemia, unspecified; Z79.899 Other long term (current) drug therapy
CPT/HCPCS: 55874; 55876; J7120

== ENCOUNTER → 2021-08-05 13:16 | Outpatient (CLI) | payer MEDICARE, OTHER, SELFPAY ==
--- NOTE | 2021-08-05 13:31 | MRI_ITS ---
STUDY: MR PELVIS WITH AND WITHOUT CONTRAST (PROSTATE) REASON FOR EXAM: Male, 86 years old. High risk prostate cancer, procedural planning for radiation therapy TECHNIQUE: Standardized multiparametric prostate MRI with T1, T2, DWI/ADC sequences were obtained in 3 orthogonal planes, and dynamic contrast enhancement sequences. 17 ml of Dotarem contrast material was administered intravenously for the contrast portion of the examination. COMPARISON: None. FINDINGS: The prostate volume measures 43.6 mm3. The contours of the prostate gland are lobulated. There is mild mass effect on the bladder base. The transition zone is heterogenous. PI-RADS DWI score 2 - Hypointense within a BPH nodule on ADC. PI-RADS T2W score 2 - A mostly encapsulated nodule OR a homogeneous circumscribed nodule without encapsulation (atypical nodule) or a homogeneous mildly hypointense area between nodules.. Contrast enhancement no early or contemporaneous enhancement; or diffuse multifocal enhancement NOT corresponding to a focal finding on T2W and/or DWI or focal ehancement responding to a lesion demonstrating features of BPH onT2WI (including features of extruded BPH in the PZ). The peripheral zone is homogenous. PI-RADS DWI score 4 - Focal moderately hypointense on ADC (image 13 series 701) and markedly hyperintense on high b-value DWI (image 13 series 700); <1.5cm on axial. PI-RADS T2W score 4 - Circumscribed, homogenous moderate hypointense focus/mass (left anterior apex, image 20 series 5) confined to prostate and < 1.5 cm in greatest dimension. Contrast enhancement no early or contemporaneous enhancement; or diffuse multifocal enhancement NOT corresponding to a focal finding on T2W and/or DWI or focal enhancement responding to a lesion demonstrating features of BPH onT2WI (including features of extruded BPH in the PZ). The seminal vesicles demonstrate normal margins and T2 signal pattern. No mass lesion or invasion depicted. The rectoprostatic angles are normal. Urinary bladder is normal without wall thickening. The vascular structures of the are normal. The visualized hollow viscus structures are normal. No bone marrow edema or mass lesion depicted. MRI/Pelvis W/WO Contrast IMPRESSION: 1. PIRADS v2.1 2019 -- 4 - High (clinically significant cancer is likely). 2. No pelvic adenopathy/soft tissue mass. Electronically Signed: Tim Spring MD (Brooks) at 9:20 EST , Service support ,
== END ==
PROVIDERS: PCP Internal Medicine; Referring Provider Student in an Organized Health Care Education/Training Program; Visit Provider Student in an Organized Health Care Education/Training Program
DX: C61 Malignant neoplasm of prostate (principal)
CPT/HCPCS: 72197; A9575

== ENCOUNTER 2021-10-06 10:41 | Outpatient (CLI) | payer MEDICARE, OTHER, SELFPAY ==
--- NOTE | 2021-10-06 10:44 | CDU_ITS ---
Reason For Study: Carotid bruit Rt. Velocities/BP Lt. Velocities/BP Prox CCA 124.3/17.3 cm/sec. Prox CCA 77.2/16.8 cm/sec. Mid CCA 102.1/13.4 cm/sec. Mid CCA 56.4/10.2 cm/sec. Dist CCA 76/12.1 cm/sec. Dist CCA 53.1/10.2 cm/sec. Prox ICA 66.3/15.2 cm/sec. Prox ICA 60.5/15.1 cm/sec. Mid ICA 75.4/18.8 cm/sec. Mid ICA 70.4/20 cm/sec. Dist ICA 93.7/20.6 cm/sec. Dist ICA 58.1/15.1 cm/sec. Rt. ICA/CCA = 0.9. Lt. ICA/CCA = 1.2. Prox ECA 176.2/9.4 cm/sec. Prox ECA 442.5/10.7 cm/sec. Rt. Vert. 39/10.7 cm/sec. Lt. Vert. 41/13.5 cm/sec. Right Extracranial There is homogeneous, smooth atherosclerotic plaque noted in the right common carotid artery. There is heterogeneous, smooth atherosclerotic plaque noted in the right internal carotid artery. There is heterogeneous, irregular atherosclerotic plaque noted in the right external carotid artery. Antegrade flow is noted in the right vertebral artery. Left Extracranial There is homogeneous, smooth atherosclerotic plaque noted in the left common carotid artery. There is heterogeneous, irregular atherosclerotic plaque noted in the left internal carotid artery. There is heterogeneous, irregular atherosclerotic plaque noted in the left external carotid artery. Antegrade flow is noted in the left vertebral artery. Procedure Carotid Duplex 22156. This is a Carotid Duplex examination using B-mode, color flow and specral Doppler. Exam performed in department. VL/Carotid Duplex Ultrasound Interpretation Summary Smooth plaque at the proximal right internal carotid artery with less than 50% stenosis Less than 50% stenosis right external carotid artery Irregular calcific plaque in the proximal left internal carotid artery with les s than 50% stenosis. Greater than 50% stenosis of the left external carotid artery Patent and antegrade vertebral arteries bilaterally Ordering Physician: Lucita Evans Referring Physician: Paul Ortega Performed By: Giovana Meza RVT
== END 2021-10-06 23:59 | disposition home or self-care (01) ==
LOC: CVS 10:43
PROVIDERS: PCP Internal Medicine; Referring Provider Physician Assistant Medical; Visit Provider Physician Assistant Medical
DX: I65.22 Occlusion and stenosis of left carotid artery (principal)
CPT/HCPCS: 93880

== ENCOUNTER 2021-10-29 14:33 | Outpatient (CLI) | payer MEDICARE, OTHER, SELFPAY ==
[2021-10-29 15:21] LABS: Absolute Lymphocyte Count 0.83 X10^3/uL (0.83-4.51); Absolute Neutrophil Count 2.8 X10^3/uL (2.0-7.7); Basophil# 0.05 X10^3/uL; Basophil% 1.1 % (0-1); Eosinophil# 0.61 X10^3/uL; Eosinophils% 12.8 % (0-5); Hematocrit 36.5 % (40-54); Hemoglobin 12.1 g/dL (13.0-16.5); Lymphocyte # 0.83 X10^3/ul (0.83-4.51); Lymphocyte % 17.4 % (19-41); Mean Corp Hgb Conc 33.2 g/dL (32-36); Mean Corpuscular Hgb 31.5 pg (27.0-32.0); Mean Corpuscular Volume 95.1 fL (80-94); Mean Platelet Vol. 8.8 fl (6.2-12.0); Monocyte# 0.44 X10^3/uL; Monocyte% 9.2 % (0-10); NRBC Flagged by Analyzer 0 % (0-5); Neutrophil % 58.9 % (47-70); Platelet Count 185 K/mm3 (150-450); RBC Distribution Width CV 16.9 % (11.6-14.6); RBC Distribution Width SD 58.4 fl (35.1-43.9); Red Blood Count 3.84 M/mm3 (4.6-6.2); White Blood Count 4.8 K/mm3 (4.4-11.0)
[2021-10-29 16:29] LABS: Anion Gap 2 (5-15); BUN 21 mg/dL (7-18); BUN/Creat Ratio 27.7 RATIO (10-20); Calcium,Total 9.5 mg/dL (8.5-10.1); Chloride 102 mmol/L (98-107); Creatinine, Serum 0.76 mg/dL (0.70-1.30); EST Glomerular Filtration Rate 104 mL/min (>60); Est Glom Filt Rate - Afr Amer 126 mL/min (>60); Glucose 96 mg/dL (74-106); Potassium 3.4 mmol/L (3.5-5.1); Sodium Level 140 mmol/L (136-145)
== END 2021-10-29 23:59 | disposition home or self-care (01) ==
LOC: BIMLAB 14:34
PROVIDERS: PCP Internal Medicine; Referring Provider Internal Medicine; Visit Provider Internal Medicine
DX: I10 Essential (primary) hypertension (principal)
CPT/HCPCS: 36415; 80048; 85025

== ENCOUNTER → 2022-01-20 | Outpatient (CLI) | payer MEDICARE, OTHER, SELFPAY ==
[2022-01-20 12:42] LABS: PSA,Total- Diagnostic < 0.01 ng/mL (0.0-4.0)
== END | disposition home or self-care (01) ==
LOC: BIMLAB 10:52
PROVIDERS: PCP Internal Medicine; Referring Provider Urology; Visit Provider Urology
DX: C61 Malignant neoplasm of prostate (principal)
CPT/HCPCS: 36415; 84153

== ENCOUNTER → 2022-04-23 | Outpatient (CLI) | payer MEDICARE, OTHER, SELFPAY ==
[2022-04-23 15:37] LABS: PSA,Total- Diagnostic < 0.01 ng/mL (0.0-4.0)
== END | disposition home or self-care (01) ==
LOC: BIMLAB 14:35
PROVIDERS: PCP Internal Medicine; Referring Provider Registered Nurse; Visit Provider Registered Nurse
DX: C61 Malignant neoplasm of prostate (principal)
CPT/HCPCS: 36415; 84153

== ENCOUNTER → 2022-07-19 | Outpatient (CLI) | payer MEDICARE, OTHER, SELFPAY ==
[2022-07-19 15:28] LABS: Absolute Lymphocyte Count 0.71 X10^3/uL (0.83-4.51); Absolute Neutrophil Count 4.2 X10^3/uL (2.0-7.7); Basophil# 0.04 X10^3/uL; Basophil% 0.7 % (0-1); Eosinophil# 0.12 X10^3/uL; Eosinophils% 2.2 % (0-5); Hematocrit 37.3 % (40-54); Hemoglobin 11.9 g/dL (13.0-16.5); Lymphocyte # 0.71 X10^3/ul (0.83-4.51); Lymphocyte % 12.9 % (19-41); Mean Corp Hgb Conc 31.9 g/dL (32-36); Mean Corpuscular Hgb 30.1 pg (27.0-32.0); Mean Corpuscular Volume 94.4 fL (80-94); Mean Platelet Vol. 9.8 fl (6.2-12.0); Monocyte# 0.47 X10^3/uL; Monocyte% 8.5 % (0-10); NRBC Flagged by Analyzer 0 % (0-5); Neutrophil # 4.16 X10^3/uL (2.7-7.7); Neutrophil % 75.3 % (47-70); Platelet Count 211 K/mm3 (150-450); RBC Distribution Width CV 16.2 % (11.6-14.6); RBC Distribution Width SD 56.3 fl (35.1-43.9); Red Blood Count 3.95 M/mm3 (4.6-6.2); White Blood Count 5.5 K/mm3 (4.4-11.0)
[2022-07-19 15:50] LABS: ALB/GLOB Ratio 1.1 RATIO (0.9-2.4); AST(SGOT) 24 U/L (15-37); Alanine Aminotransfer ALT/SGPT 29 U/L (16-61); Albumin, Serum 3.4 g/dL (3.2-5.0); Alkaline Phosphatase 74 U/L (45-117); Anion Gap 6 (5-15); BUN 18 mg/dL (7-18); BUN/Creat Ratio 21.1 RATIO (10-20); Calcium,Total 9.1 mg/dL (8.5-10.1); Chloride 101 mmol/L (98-107); Creatinine, Serum 0.85 mg/dL (0.70-1.30); EST Glomerular Filtration Rate 91 mL/min (>60); Est Glom Filt Rate - Afr Amer 110 mL/min (>60); Globulin 3.2 g/dL (2.2-4.2); Glucose 108 mg/dL (74-106); Potassium 3.6 mmol/L (3.5-5.1); Protein, Total 6.6 g/dL (6.4-8.2); Sodium Level 140 mmol/L (136-145)
== END | disposition home or self-care (01) ==
LOC: BIMLAB 12:16
PROVIDERS: PCP Internal Medicine; Referring Provider Internal Medicine; Visit Provider Internal Medicine
DX: R42 Dizziness and giddiness (principal)
CPT/HCPCS: 36415; 80053; 85025

== ENCOUNTER → 2022-07-22 | Outpatient (CLI) | payer MEDICARE, OTHER, SELFPAY ==
[2022-07-22 11:53] LABS: Bacteria 0 SEEN /hpf (None Seen); Mucous, Urine 0 SEEN /hpf (<or=2+); Red Blood Cells-Urine 0 SEEN /hpf (0-5); Squamous Epithelial Cells - UA 0 SEEN /hpf (0-5)
[2022-07-22 14:58] LABS: Color, Urine Yellow (Yellow); Glucose, Dipstick Normal (Normal); Ketone-Dipstick 5 mg/dl (Negative); Leukocyte Esterase-Dipstick 25 /ul (Negative); Nitrite-Dipstick Negative (Negative); Occult Blood-Urine Negative /ul (Negative); Protein-Dipstick 30 mg/dl (Negative); Urine Bilirubin Dipstick Negative (Negative); Urine Clarity Clear (Clear); Urine Urobilinogen 1 mg/dl (Normal); Urine pH 6.5 (5.0 - 8.0)
[2022-07-22 15:08] LABS: White Blood Cells 0-5 SEEN /hpf (0-5)
== END | disposition home or self-care (01) ==
LOC: LABSPEC 11:49
PROVIDERS: PCP Internal Medicine; Referring Provider Internal Medicine; Visit Provider Internal Medicine
DX: N40.0 Benign prostatic hyperplasia without lower urinary tract symptoms (principal)
CPT/HCPCS: 81001

== ENCOUNTER → 2022-08-03 | Outpatient (CLI) | payer MEDICARE, OTHER, SELFPAY ==
[2022-08-03 13:06] LABS: PSA,Total- Diagnostic < 0.01 ng/mL (0.0-4.0)
== END | disposition home or self-care (01) ==
LOC: BIMLAB 09:34
PROVIDERS: PCP Internal Medicine; Referring Provider Registered Nurse; Visit Provider Registered Nurse
DX: R97.20 Elevated prostate specific antigen [PSA] (principal)
CPT/HCPCS: 36415; 84153

== ENCOUNTER → 2022-10-11 | Outpatient (CLI) | payer MEDICARE, OTHER, SELFPAY ==
[2022-10-11 15:22] LABS: Absolute Lymphocyte Count 1.01 X10^3/uL (0.83-4.51); Absolute Neutrophil Count 4.1 X10^3/uL (2.0-7.7); Basophil# 0.05 X10^3/uL; Basophil% 0.9 % (0-1); Eosinophil# 0.16 X10^3/uL; Eosinophils% 2.7 % (0-5); Hematocrit 38.8 % (40-54); Hemoglobin 12.2 g/dL (13.0-16.5); Lymphocyte # 1.01 X10^3/ul (0.83-4.51); Lymphocyte % 17.2 % (19-41); Mean Corp Hgb Conc 31.4 g/dL (32-36); Mean Corpuscular Volume 92.4 fL (80-94); Mean Platelet Vol. 9.3 fl (6.2-12.0); Monocyte% 8.5 % (0-10); NRBC Flagged by Analyzer 0 % (0-5); Neutrophil # 4.12 X10^3/uL (2.7-7.7); Neutrophil % 70.2 % (47-70); Platelet Count 264 K/mm3 (150-450); RBC Distribution Width CV 15.9 % (11.6-14.6); RBC Distribution Width SD 53.5 fl (35.1-43.9); White Blood Count 5.9 K/mm3 (4.4-11.0)
[2022-10-11 15:36] LABS: ALB/GLOB Ratio 0.9 RATIO (0.9-2.4); AST(SGOT) 17 U/L (15-37); Alanine Aminotransfer ALT/SGPT 23 U/L (16-61); Albumin, Serum 3.4 g/dL (3.2-5.0); Alkaline Phosphatase 79 U/L (45-117); Anion Gap 8 (5-15); BUN 22 mg/dL (7-18); BUN/Creat Ratio 23.1 RATIO (10-20); Calcium,Total 9.4 mg/dL (8.5-10.1); Chloride 99 mmol/L (98-107); Creatinine, Serum 0.95 mg/dL (0.70-1.30); EST Glomerular Filtration Rate 80 mL/min (>60); Est Glom Filt Rate - Afr Amer 97 mL/min (>60); Globulin 3.6 g/dL (2.2-4.2); Glucose 109 mg/dL (74-106); Potassium 3.6 mmol/L (3.5-5.1); Sodium Level 139 mmol/L (136-145)
== END | disposition home or self-care (01) ==
LOC: BIMLAB 14:05
PROVIDERS: PCP Internal Medicine; Referring Provider Internal Medicine; Visit Provider Internal Medicine
DX: I10 Essential (primary) hypertension (principal)
CPT/HCPCS: 36415; 80053; 85025

== ENCOUNTER → 2023-01-17 | Outpatient (CLI) | payer MEDICARE, OTHER, SELFPAY ==
[2023-01-17 17:25] LABS: Absolute Lymphocyte Count 0.71 X10^3/uL (0.83-4.51); Absolute Neutrophil Count 3.7 X10^3/uL (2.0-7.7); Basophil# 0.05 X10^3/uL; Eosinophil# 0.16 X10^3/uL; Eosinophils% 3.2 % (0-5); Hematocrit 39.2 % (40-54); Hemoglobin 12.3 g/dL (13.0-16.5); Lymphocyte # 0.71 X10^3/ul (0.83-4.51); Mean Corp Hgb Conc 31.4 g/dL (32-36); Mean Corpuscular Hgb 29.7 pg (27.0-32.0); Mean Corpuscular Volume 94.7 fL (80-94); Mean Platelet Vol. 9.8 fl (6.2-12.0); Monocyte% 7.9 % (0-10); NRBC Flagged by Analyzer 0 % (0-5); Neutrophil # 3.72 X10^3/uL (2.7-7.7); Neutrophil % 73.5 % (47-70); Platelet Count 217 K/mm3 (150-450); RBC Distribution Width CV 16.2 % (11.6-14.6); RBC Distribution Width SD 56.7 fl (35.1-43.9); Red Blood Count 4.14 M/mm3 (4.6-6.2); White Blood Count 5.1 K/mm3 (4.4-11.0)
[2023-01-17 17:49] LABS: Anion Gap 7 (5-15); BUN 27 mg/dL (7-18); BUN/Creat Ratio 22.3 RATIO (10-20); Calcium,Total 9.8 mg/dL (8.5-10.1); Chloride 103 mmol/L (98-107); Creatinine, Serum 1.21 mg/dL (0.70-1.30); EST Glomerular Filtration Rate 61 mL/min (>60); Est Glom Filt Rate - Afr Amer 73 mL/min (>60); Glucose 104 mg/dL (74-106); Potassium 3.7 mmol/L (3.5-5.1); Sodium Level 143 mmol/L (136-145)
== END | disposition home or self-care (01) ==
LOC: BIMLAB 15:08
PROVIDERS: PCP Internal Medicine; Referring Provider Internal Medicine; Visit Provider Internal Medicine
DX: I10 Essential (primary) hypertension (principal)
CPT/HCPCS: 36415; 80048; 85025

== ENCOUNTER → 2023-03-07 | Outpatient (CLI) | payer MEDICARE, OTHER, SELFPAY ==
[2023-03-07 17:07] LABS: PSA,Total- Diagnostic < 0.01 ng/mL (0.0-4.0)
== END | disposition home or self-care (01) ==
LOC: BIMLAB 15:36
PROVIDERS: PCP Internal Medicine; Referring Provider Student in an Organized Health Care Education/Training Program; Visit Provider Student in an Organized Health Care Education/Training Program
DX: C61 Malignant neoplasm of prostate (principal)
CPT/HCPCS: 36415; 84153

== ENCOUNTER → 2023-05-25 | Outpatient (CLI) | payer MEDICARE, OTHER, SELFPAY ==
[2023-05-25 12:21] LABS: Absolute Lymphocyte Count 0.99 X10^3/uL (0.83-4.51); Absolute Neutrophil Count 3.5 X10^3/uL (2.0-7.7); Basophil# 0.06 X10^3/uL; Basophil% 1.2 % (0-1); Eosinophil# 0.11 X10^3/uL; Eosinophils% 2.2 % (0-5); Hematocrit 42.2 % (40-54); Hemoglobin 13.5 g/dL (13.0-16.5); Lymphocyte # 0.99 X10^3/ul (0.83-4.51); Lymphocyte % 19.4 % (19-41); Mean Corpuscular Hgb 30.2 pg (27.0-32.0); Mean Corpuscular Volume 94.4 fL (80-94); Monocyte# 0.39 X10^3/uL; Monocyte% 7.7 % (0-10); NRBC Flagged by Analyzer 0 % (0-5); Neutrophil # 3.52 X10^3/uL (2.7-7.7); Neutrophil % 69.1 % (47-70); Platelet Count 227 K/mm3 (150-450); RBC Distribution Width CV 15.2 % (11.6-14.6); RBC Distribution Width SD 52.7 fl (35.1-43.9); Red Blood Count 4.47 M/mm3 (4.6-6.2); White Blood Count 5.1 K/mm3 (4.4-11.0)
[2023-05-25 13:01] LABS: AST(SGOT) 20 U/L (15-37); Alanine Aminotransfer ALT/SGPT 28 U/L (16-61); Albumin, Serum 3.6 g/dL (3.2-5.0); Alkaline Phosphatase 80 U/L (45-117); Anion Gap 5 (5-15); BUN 22 mg/dL (7-18); BUN/Creat Ratio 29.3 RATIO (10-20); Calcium,Total 9.5 mg/dL (8.5-10.1); Chloride 102 mmol/L (98-107); Creatinine, Serum 0.75 mg/dL (0.70-1.30); EST Glomerular Filtration Rate 105 mL/min (>60); Est Glom Filt Rate - Afr Amer 127 mL/min (>60); Globulin 3.7 g/dL (2.2-4.2); Glucose 115 mg/dL (74-106); Potassium 3.9 mmol/L (3.5-5.1); Protein, Total 7.3 g/dL (6.4-8.2); Sodium Level 139 mmol/L (136-145)
[2023-05-25 13:06] LABS: PSA,Total- Diagnostic < 0.01 ng/mL (0.0-4.0)
== END | disposition home or self-care (01) ==
LOC: BIMLAB 11:10
PROVIDERS: Urology; PCP Internal Medicine; Referring Provider Internal Medicine; Visit Provider Internal Medicine
DX: C61 Malignant neoplasm of prostate (principal); I10 Essential (primary) hypertension
CPT/HCPCS: 36415; 80053; 84153; 85025

== ENCOUNTER → 2023-11-24 | Outpatient (CLI) | payer MEDICARE, OTHER, SELFPAY ==
[2023-11-24 15:36] LABS: PSA,Total- Diagnostic < 0.01 ng/mL (0.0-4.0)
== END | disposition home or self-care (01) ==
LOC: BIMLAB 11:57
PROVIDERS: PCP Internal Medicine; Referring Provider Urology; Visit Provider Urology
DX: C61 Malignant neoplasm of prostate (principal)
CPT/HCPCS: 36415; 84153

== ENCOUNTER → 2023-12-09 | Outpatient (CLI) | payer MEDICARE, OTHER, SELFPAY ==
[2023-12-09 12:06] LABS: Absolute Lymphocyte Count 1.26 X10^3/uL (0.83-4.51); Absolute Neutrophil Count 4.4 X10^3/uL (2.0-7.7); Basophil# 0.05 X10^3/uL; Basophil% 0.8 % (0-1); Eosinophil# 0.17 X10^3/uL; Eosinophils% 2.6 % (0-5); Hematocrit 40.2 % (40-54); Hemoglobin 13.1 g/dL (13.0-16.5); Lymphocyte # 1.26 X10^3/ul (0.83-4.51); Lymphocyte % 19.3 % (19-41); Mean Corp Hgb Conc 32.6 g/dL (32-36); Mean Corpuscular Hgb 29.9 pg (27.0-32.0); Mean Corpuscular Volume 91.8 fL (80-94); Mean Platelet Vol. 9.1 fl (6.2-12.0); Monocyte# 0.65 X10^3/uL; NRBC Flagged by Analyzer 0 % (0-5); Neutrophil # 4.38 X10^3/uL (2.7-7.7); Platelet Count 239 K/mm3 (150-450); RBC Distribution Width CV 15.2 % (11.6-14.6); Red Blood Count 4.38 M/mm3 (4.6-6.2); White Blood Count 6.5 K/mm3 (4.4-11.0)
[2023-12-09 12:49] LABS: AST(SGOT) 20 U/L (15-37); Alanine Aminotransfer ALT/SGPT 24 U/L (16-61); Albumin, Serum 3.6 g/dL (3.2-5.0); Alkaline Phosphatase 76 U/L (45-117); Anion Gap 7 (5-15); BUN 20 mg/dL (7-18); BUN/Creat Ratio 21.4 RATIO (10-20); Calcium,Total 9.5 mg/dL (8.5-10.1); Chloride 101 mmol/L (98-107); Creatinine, Serum 0.93 mg/dL (0.70-1.30); EST Glomerular Filtration Rate 82 mL/min (>60); Est Glom Filt Rate - Afr Amer 99 mL/min (>60); Globulin 3.5 g/dL (2.2-4.2); Glucose 101 mg/dL (74-106); Potassium 3.5 mmol/L (3.5-5.1); Protein, Total 7.1 g/dL (6.4-8.2); Sodium Level 138 mmol/L (136-145)
[2023-12-09 13:39] LABS: Uric Acid 4.6 mg/dL (3.5-7.2)
== END | disposition home or self-care (01) ==
LOC: BIMLAB 10:57
PROVIDERS: PCP Internal Medicine; Referring Provider Internal Medicine; Visit Provider Internal Medicine
DX: I10 Essential (primary) hypertension (principal); M10.9 Gout, unspecified
CPT/HCPCS: 36415; 80053; 84550; 85025

== ENCOUNTER → 2024-01-06 | Outpatient (CLI) | payer MEDICARE, OTHER, SELFPAY ==
--- NOTE | 2024-01-06 15:30 | RAD_ITS ---
STUDY: X-RAY CHEST REASON FOR EXAM: Male, 88 years old. Cough. TECHNIQUE: Frontal and lateral views of the chest on 4 images. COMPARISON: September 07, 2021 FINDINGS: Stable marked hyperinflation. Scattered healed parenchymal granulomatous calcifications There is no demonstrated pleural abnormality. Cardiomegaly unchanged. Normal mediastinum and farideh. Prominent central pulmonary arteries unchanged. Aortic tortuosity with calcification unchanged. Stable thoracic osteopenia with diffuse moderate thoracic spondylosis. Normal visualized ribs, clavicles, and shoulders. No abnormality of the visualized soft tissue structures of the upper abdomen. RAD/Chest PA and Lateral IMPRESSION: Stable cardiomegaly with hyperinflation. No active or acute cardiopulmonary disease. Electronically Signed: Kyaw Moyer MD at 15:41 EDT ,
== END | disposition home or self-care (01) ==
PROVIDERS: PCP Internal Medicine; Referring Provider Nurse Practitioner; Visit Provider Nurse Practitioner
DX: U07.1 COVID-19 (principal)
CPT/HCPCS: 71046; 87631

== ENCOUNTER → 2024-05-30 | Outpatient (CLI) | payer MEDICARE, OTHER, SELFPAY ==
[2024-05-30 15:44] LABS: PSA,Total- Diagnostic < 0.01 ng/mL (0.0-4.0)
== END | disposition home or self-care (01) ==
PROVIDERS: PCP Internal Medicine; Referring Provider Nurse Practitioner; Visit Provider Nurse Practitioner
DX: C61 Malignant neoplasm of prostate (principal)
CPT/HCPCS: 36415; 84153

== ENCOUNTER → 2024-06-11 | Outpatient (CLI) | payer MEDICARE, OTHER, SELFPAY ==
[2024-06-11 12:11] LABS: Absolute Lymphocyte Count 1.05 X10^3/uL (0.83-4.51); Absolute Neutrophil Count 4.7 X10^3/uL (2.0-7.7); Basophil# 0.08 X10^3/uL; Basophil% 1.2 % (0-1); Eosinophil# 0.15 X10^3/uL; Eosinophils% 2.3 % (0-5); Hematocrit 40.9 % (40-54); Hemoglobin 13.2 g/dL (13.0-16.5); Lymphocyte # 1.05 X10^3/ul (0.83-4.51); Mean Corp Hgb Conc 32.3 g/dL (32-36); Mean Corpuscular Hgb 30.3 pg (27.0-32.0); Mean Corpuscular Volume 93.8 fL (80-94); Monocyte# 0.58 X10^3/uL; Monocyte% 8.8 % (0-10); NRBC Flagged by Analyzer 0 % (0-5); Neutrophil # 4.69 X10^3/uL (2.7-7.7); Neutrophil % 71.4 % (47-70); Platelet Count 260 K/mm3 (150-450); RBC Distribution Width CV 15.3 % (11.6-14.6); RBC Distribution Width SD 53.3 fl (35.1-43.9); Red Blood Count 4.36 M/mm3 (4.6-6.2); White Blood Count 6.6 K/mm3 (4.4-11.0)
[2024-06-11 16:25] LABS: AST(SGOT) 21 U/L (15-37); Alanine Aminotransfer ALT/SGPT 23 U/L (16-61); Albumin, Serum 3.6 g/dL (3.2-5.0); Alkaline Phosphatase 81 U/L (45-117); Anion Gap 8 (5-15); BUN 24 mg/dL (7-18); BUN/Creat Ratio 25.8 RATIO (10-20); Calcium,Total 9.7 mg/dL (8.5-10.1); Chloride 101 mmol/L (98-107); Cholesterol 210 mg/dL (200); Creatinine, Serum 0.93 mg/dL (0.70-1.30); EST Glomerular Filtration Rate 82 mL/min (>60); Est Glom Filt Rate - Afr Amer 99 mL/min (>60); Globulin 3.6 g/dL (2.2-4.2); Glucose 112 mg/dL (74-106); High Density Lipoprotein 51 mg/dL; Potassium 3.8 mmol/L (3.5-5.1); Protein, Total 7.2 g/dL (6.4-8.2); Sodium Level 141 mmol/L (136-145); T4 Free Direct 1.09 ng/dL (0.76-1.46); Triglycerides 337 mg/dL; Very Low Density Lipoprotein 67 mg/dL (5-40)
[2024-06-12 14:01] LABS: Hemoglobin A1c 5.5 % (3.8-5.6)
== END | disposition home or self-care (01) ==
LOC: BIMLAB 11:26
PROVIDERS: PCP Internal Medicine; Referring Provider Internal Medicine; Visit Provider Internal Medicine
DX: E78.2 Mixed hyperlipidemia (principal); R73.9 Hyperglycemia, unspecified
CPT/HCPCS: 36415; 80053; 80061; 83036; 84439; 84443; 85025

== ENCOUNTER → 2024-11-29 | Outpatient (CLI) | payer MEDICARE, OTHER, SELFPAY ==
[2024-11-29 13:03] LABS: ALB/GLOB Ratio 1.5 RATIO (0.9-2.4); AST(SGOT) 19 U/L (<=37); Alanine Aminotransfer ALT/SGPT 14 U/L (<=46); Albumin, Serum 4.2 g/dL (3.4-4.8); Alkaline Phosphatase 91 U/L (40-129); Anion Gap 11 (5-15); BUN 17 mg/dL (4-19); BUN/Creat Ratio 24.9 RATIO (10-20); Calcium,Total 9.2 mg/dL (7.6-11.0); Carbon Dioxide 28.3 mmol/L (21.0-32.0); Chloride 103 mmol/L (98-108); EST Glomerular Filtration Rate 89 (>60); Globulin 2.8 g/dL (2.2-4.2); Glucose 109 mg/dL (70-99); Potassium 3.9 mmol/L (3.3-5.1); Sodium Level 142 mmol/L (133-145); Total Bilirubin 0.65 mg/dL (0.00-1.30)
[2024-11-29 13:15] LABS: PSA,Total- Diagnostic < 0.02 ng/mL (0.00-4.00)
[2024-11-29 21:47] LABS: Cholesterol 236 mg/dL (<=200); High Density Lipoprotein 56 mg/dL; Low Density Lipoprotein Calc. 137 mg/dL; Triglycerides 218 mg/dL; Very Low Density Lipoprotein 44 mg/dL (5-40); cholesterol:hdl ratio screen 4.23
== END | disposition home or self-care (01) ==
LOC: BIMLAB 09:08
PROVIDERS: PCP Internal Medicine; Referring Provider Urology; Visit Provider Urology
DX: E78.2 Mixed hyperlipidemia (principal); C61 Malignant neoplasm of prostate
CPT/HCPCS: 36415; 80053; 80061; 84153

== ENCOUNTER → 2025-06-11 | Outpatient (CLI) | payer MEDICARE, OTHER, SELFPAY ==
[2025-06-11 10:29] LABS: Hematocrit 40.9 % (40-54); Hemoglobin 13.5 g/dL (13.0-16.5); Immature Granulocytes Count 0.020 X10^3/uL (0.0-0.0); Mean Corp Hgb Conc 33.0 g/dL (32-36); Mean Corpuscular Volume 91.5 fL (80-94); Mean Platelet Vol. 8.8 fl (6.2-12.0); NRBC Flagged by Analyzer 0 % (0-5); Platelet Count 204 K/mm3 (150-450); RBC Distribution Width CV 15.4 % (11.6-14.6); RBC Distribution Width SD 51.2 fl (35.1-43.9); Red Blood Count 4.47 M/mm3 (4.6-6.2); White Blood Count 4.8 K/mm3 (4.4-11.0)
[2025-06-11 12:06] LABS: AST(SGOT) 25 U/L (<=37); Alanine Aminotransfer ALT/SGPT 17 U/L (<=46); Albumin, Serum 4.1 g/dL (3.4-4.8); Alkaline Phosphatase 73 U/L (40-129); Anion Gap 11 (5-15); BUN 15 mg/dL (4-19); BUN/Creat Ratio 21.6 RATIO (10-20); Calcium,Total 9.5 mg/dL (7.6-11.0); Carbon Dioxide 26.6 mmol/L (21.0-32.0); Chloride 104 mmol/L (98-108); Cholesterol 226 mg/dL (<=200); Globulin 2.6 g/dL (2.2-4.2); Glucose 113 mg/dL (70-99); Low Density Lipoprotein Calc. 135 mg/dL; Potassium 3.5 mmol/L (3.3-5.1); Triglycerides 161 mg/dL; Very Low Density Lipoprotein 32 mg/dL (5-40); cholesterol:hdl ratio screen 3.81
[2025-06-11 12:12] LABS: PSA,Total - Annual Screen < 0.02 ng/mL (0.02-4.00)
== END | disposition home or self-care (01) ==
LOC: LAB 09:51
PROVIDERS: PCP Internal Medicine; Referring Provider Internal Medicine; Visit Provider Internal Medicine
DX: E78.5 Hyperlipidemia, unspecified (principal); C61 Malignant neoplasm of prostate; I10 Essential (primary) hypertension
CPT/HCPCS: 36415; 80053; 80061; 84153; 85025; G0103